=== PATIENT | male | born 1935 | race Caucasian/White ===

== ENCOUNTER → 2019-08-01 | Outpatient (CLI) | payer MEDICARE, OTHER ==
[2019-08-01 14:57] LABS: ALKALINE PHOSPHATASE 105 U/L (40-136); BILIRUBIN,TOTAL 0.7 MG/DL (0.1-1.0); BUN/CREATININE RATIO 29; CALCIUM 9.5 MG/DL (8.5-10.1); CARBON DIOXIDE 26 MMOL/L (21-32); CHLORIDE 105 MMOL/L (98-107); GFR ESTIMATED > 60; GLUCOSE 140 MG/DL (70-105); POTASSIUM 3.8 MMOL/L (3.6-5.0); SODIUM 142 MMOL/L (135-145)
[2019-08-01 14:58] LABS: ALANINE AMINOTRANSFERASE 14 U/L (0-55); ALBUMIN 3.9 GM/DL (3.2-4.5); TOTAL PROTEIN 6.5 GM/DL (6.4-8.2)
[2019-08-01 15:00] LABS: HEMOGLOBIN 12.5 G/DL (13.3-17.7); MEAN CORPUSCULAR HEMOGLOBIN 36 PG (25-34); WHITE BLOOD COUNT 6.3 10^3/uL (4.3-11.0)
[2019-08-01 15:03] LABS: BASOPHILS # (AUTO) 0.1 10^3/uL (0.0-0.1); BASOPHILS % (AUTO) 1 % (0-10); EOSINOPHILS # (AUTO) 0.1 10^3/uL (0.0-0.3); EOSINOPHILS % (AUTO) 2 % (0-10); HEMATOCRIT 37 % (40-54); LYMPHOCYTES # (AUTO) 2.1 X 10^3 (1.0-4.0); LYMPHOCYTES % (AUTO) 33 % (12-44); MEAN CORPUSCULAR HGB CONC 34 G/DL (32-36); MEAN CORPUSCULAR VOLUME 108 FL (80-99); MEAN PLATELET VOLUME 11.2 FL (7.4-10.4); MONOCYTES # (AUTO) 0.6 X 10^3 (0.0-1.0); MONOCYTES % (AUTO) 10 % (0-12); NEUTROPHILS # (AUTO) 3.4 X 10^3 (1.8-7.8); NEUTROPHILS % (AUTO) 54 % (42-75); PLATELET COUNT 145 10^3/uL (130-400); RED CELL DISTRIBUTION WIDTH 12.7 % (10.0-14.5)
[2019-08-01 22:23] LABS: CHOLESTEROL 146 MG/DL (< 200); HDL CHOLESTEROL 58 MG/DL (40-60); TRIGLYCERIDES 44 MG/DL (<150); VLDL CHOLESTEROL 9 MG/DL (5-40)
== END ==
LOC: LAB FS 13:53
PROVIDERS: ATTEND Internal Medicine Cardiovascular Disease
DX: I48.91 Unspecified atrial fibrillation (principal); I10 Essential (primary) hypertension; R00.2 Palpitations
CPT/HCPCS: 36415; 80053; 80061; 84443; 85025

== ENCOUNTER → 2019-08-03 | Outpatient (CLI) | payer MEDICARE, OTHER | LOC: CARD 13:47 | PROVIDERS: ATTEND Internal Medicine Cardiovascular Disease | DX: I48.91 Unspecified atrial fibrillation (principal); I10 Essential (primary) hypertension; R00.2 Palpitations; I08.3 Combined rheumatic disorders of mitral, aortic and tricuspid valves | CPT/HCPCS: 93306 ==

== ENCOUNTER 2019-08-05 14:58 | Emergency (ER) | payer MEDICARE, OTHER ==
[~2019-08-05] VITALS: Ht 177.8 cm; Wt 66.5 kg
--- NOTE | 2019-08-05 16:14 | ED Upper Extremity ---
General Chief Complaint: Upper Extremity Stated Complaint: LT ELBOW SWELLING Nursing Triage Note: Patient reports bruising and swelling to left elbow and lower arm since morning, denies any recent injury or pain to elbow. He states he recently started taking xarelto for atrial fibrillation (x 3 weeks ago). Nursing Sepsis Screen: No Definite Risk History of Present Illness Date Seen by Provider: Aug 05, 2019 Time Seen by Provider: 15:40 Initial Comments Patient is here swelling the left arm recently on Zarrella toe for atrial fibrillation and his elbow on the table felt something swelling in his olecranon bursa swelling was swollen followed by then bruising down the arm than that way for a couple days but was encouraged by his son to go when he went to urgent care they encouraged him to come this direction. No numbness or tingling good range of motion in the hand and wrist Onset: yesterday Pain/Injury Location: left elbow, left forearm Method of Injury: unknown Modifying Factors: Improves With Movement Allergies and Home Medications Allergies Coded Allergies: Penicillins (Verified Allergy, Unknown, 08/05/19) Patient Home Medication List Home Medication List Reviewed: Yes Review of Systems Constitutional: No chills, No fever Cardiovascular: No chest pain, No edema, No palpitations Musculoskeletal: joint pain, joint swelling, muscle pain, muscle stiffness Skin: change in color, lesions Psychiatric/Neurological: Denies Numbness, Denies Tingling, Denies Weakness Past Vkqtkkp-Uogwbm-Ilodql Hx Past Med/Social Hx: Reviewed Nursing Past Med/Soc Hx Patient Social History Recent Foreign Travel: No Contact w/Someone Who Travel: No Recent Infectious Disease Expo: No Physical Exam Vital Signs Vital Signs - First Documented 08/05/19 15:20 Temp 37.1 Pulse 74 Resp 18 B/P (MAP) 133/77 (95) Pulse Ox 96 O2 Delivery Room Air Capillary Refill : Less Than 3 Seconds Height, Weight, BMI Height: '" Weight: lbs. oz. kg; 21.00 BMI Method: General Appearance: WD/WN, no apparent distress HEENT: TMs normal, pharynx normal Neck: non-tender, normal inspection Cardiovascular: regular rate, rhythm, no murmur Respiratory: lungs clear, normal breath sounds Elbow/Forearm: Left, limited ROM, swelling Neurologic/Tendon: other (large amount of ecchymosis in the left arm with a swollen bursa on the left olecranon area good range of motion but does have some limitation on extremes of flexion neurologically intact pulses are intact vascularly looks good) Skin: ecchymosis Progress/Results/Core Measures Results/Orders Vital Signs/I&O 08/05/19 15:20 Temp 37.1 Pulse 74 Resp 18 B/P (MAP) 133/77 (95) Pulse Ox 96 O2 Delivery Room Air Blood Pressure Mean: 95 Departure Impression Primary Impression: Traumatic hematoma of left forearm Qualified Codes: S50.12XA - Contusion of left forearm, initial encounter Disposition: HOME, SELF-CARE Condition: Stable Departure-Patient Inst. Referrals: KALI GALLO MD (PCP/Family) Primary Care Physician Patient Instructions: HEMATOMA Add. Discharge Instructions: Follow-up with your PCP first part of next week All discharge instructions reviewed with patient and/or family. Voiced understanding. VIPIN CARDOZA JR, MD Aug 05, 2019 16:14
[2019-08-05 16:20] VITALS: BP 135/82
== END 2019-08-05 16:24 | disposition home or self-care (01) ==
LOC: EDUNIT# 14:58 → ER FS 15:00
DX: S50.12XA Contusion of left forearm, initial encounter (principal); I48.91 Unspecified atrial fibrillation; Z88.0 Allergy status to penicillin; X58.XXXA Exposure to other specified factors, initial encounter
CPT/HCPCS: 99282

== ENCOUNTER → 2019-08-15 | Outpatient (CLI) | payer MEDICARE, OTHER ==
--- NOTE | 2019-08-15 11:37 | Diagnostic Imaging Report ---
INDICATION: Age-related screening for osteoporosis. COMPARISON: None FINDINGS: AP Spine L1-L4: [BMD (g/cm2): 1.092] [T-Score: -1.2] [Z-Score: 0.0] [BMD Previous: na] [BMD % Change: na] LT Hip Neck: [BMD (g/cm2): na] [T-Score: na] [Z-Score: na] LT Hip Total: [BMD (g/cm2):na] [T-Score:na] [Z-Score: na] [BMD Previous: na] [BMD % Change: na] RT Hip Neck: [BMD (g/cm2):na] [T-Score:na] [Z-Score:na] RT Hip Total: [BMD (g/cm2):na] [T-score:na] [Z-Score:na] [BMD Previous:na] [BMD % Change:na] *Indicates significant change from prior examination based on 95% confidence level. World Health Organization criteria for BMD interpretation classify patients as Normal (T-score at or above -1.0), Osteopenic (T-score between -1.0 and -2.5) or Osteoporotic (T-score at or below -2.5). LIMITATIONS AND MODIFICATION: None. FRACTURE RISK (FRAX SCORE): The ten year probability of (%): Major Osteoporotic Fracture: [na] Hip Fracture: [na] IMPRESSION: 1. Osteopenia (Low bone mass). 2. Baseline examination. 3. See below National Osteoporosis Foundation guidelines on when to potentially initiate pharmacologic therapy. Based on the National Osteoporosis Foundation Guidelines, pharmacologic treatment should be initiated in any of the following, unless clinical conditions suggest otherwise: * Any patient with prior fragility fracture of the hip or vertebrae. A spine fracture indicates 5X risk for subsequent spine fracture and 2X risk for subsequent hip fracture. * Osteoporosis (T-score <-2.5). * Postmenopausal women and men age 50 and older with low bone mass/osteopenia (T-score between -1.0 and -2.5) by DXA and 10-year major osteoporotic fracture greater than 20% or a 10-year probability of hip fracture greater than 3%. These fracture risks are supplied above in the FRAX score, if applicable. * Clinician judgement and/or patient preferences may indicate treatment for people with 10-year fracture probabilities above or below these levels. Dictated by: Dictated on workstation # [id number]
== END ==
LOC: RAD 10:04
PROVIDERS: ATTEND Family Medicine
DX: M81.0 Age-related osteoporosis without current pathological fracture (principal)
CPT/HCPCS: 77080

== ENCOUNTER 2020-01-03 09:34 | Emergency (ER) | payer MEDICARE, OTHER ==
[~2020-01-03] VITALS: Ht 177.8 cm; Wt 66.6 kg
[2020-01-03 10:05] LABS: EOSINOPHILS % (AUTO) 3 % (0-10); HEMATOCRIT 38 % (40-54); HEMOGLOBIN 13.2 G/DL (13.3-17.7); LYMPHOCYTES % (AUTO) 29 % (12-44); MEAN CORPUSCULAR HEMOGLOBIN 36 PG (25-34); MEAN CORPUSCULAR HGB CONC 34 G/DL (32-36); MEAN CORPUSCULAR VOLUME 106 FL (80-99); MEAN PLATELET VOLUME 11.1 FL (7.4-10.4); MONOCYTES % (AUTO) 11 % (0-12); NEUTROPHILS % (AUTO) 56 % (42-75); PLATELET COUNT 169 10^3/uL (130-400); RED CELL DISTRIBUTION WIDTH 13.1 % (10.0-14.5); WHITE BLOOD COUNT 6.4 10^3/uL (4.3-11.0)
--- OUTSIDE RECORDS SUMMARY | 2020-01-03 10:05 | XMS REPORT | Continuity of Care Document ---
Author Organization Unknown Address Unknown Phone Unavailable Allergies Active Description Code Type Severity Reaction Onset Reported/Identified Relationship to Patient Clinical Status Yes Penicillins [id number] Drug Aller gy Unknown N/A 08/05/2019 Medications There is no data. Problems Date Dx Coded Attending Type Code Diagnosis Diagnosed By 08/02/2019 TOI ROME MD Ot I10 ESSENTIAL (PRIMARY) HYPERTENSION 08/02/2019 TOI ROME MD Ot I48. 91 UNSPECIFIED ATRIAL FIBRILLATION 08/02/2019 TOI ROME MD Ot R00. 2 PALPITATIONS 08/03/2019 TOI ROME MD Ot I10 ESSENTIAL (PRIMARY) HYPERTENSION 08/03/2019 TOI ROME MD Ot I48. 91 UNSPECIFIED ATRIAL FIBRILLATION 08/03/2019 TOI ROME MD Ot R00. 2 PALPITATIONS 08/03/2019 TOI ROME MD Ot I10 ESSENTIAL (PRIMARY) HYPERTENSION 08/03/2019 TOI ROME MD Ot I48. 91 UNSPECIFIED ATRIAL FIBRILLATION 08/03/2019 TOI ROME MD Ot R00. 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 91 UNSPECIFIED ATRIAL FIBRILLATION 08/04/2019 TOI ROME MD Ot R00. 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 91 UNSPECIFIED ATRIAL FIBRILLATION 08/05/2019 TOI ROME MD Ot R00. 2 PALPITATIONS 08/05/2019 TOI ROME MD Ot I10 ESSENTIAL (PRIMARY) HYPERTENSION 08/05/2019 TOI ROME MD Ot I48. 91 UNSPECIFIED ATRIAL FIBRILLATION 08/05/2019 TOI ROME MD Ot R00. 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 91 UNSPECIFIED ATRIAL FIBRILLATION 08/05/2019 TOI ROME MD Ot R00. 2 PALPITATIONS 08/05/2019 TOI ROME MD Ot I10 ESSENTIAL (PRIMARY) HYPERTENSION 08/05/2019 TOI ROME MD Ot I48. 91 UNSPECIFIED ATRIAL FIBRILLATION 08/05/2019 TOI ROME MD Ot R00. 2 PALPITATIONS 08/05/2019 VIPIN CARDOZA MD Ot I48.91 UNSPECIFIED ATRIAL FIBRILLATION 08/05/2019 SONY JOSE, VIPIN Malloy Ot M25.522 PAIN IN LEFT ELBOW 08/05/2019 SONY JOSE, VIPIN Mlaloy Ot S50.12XA CONTUSION OF LEFT FOREARM, INITIAL ENCOU 08/05/2019 SONY JOSE, VIPIN Malloy Ot X58.XXXA EXPOSURE TO OTHER SPECIFIED FACTORS, INI 08/05/2019 SONY JOSE, VIPIN Malloy Ot Z88.0 ALLERGY STATUS TO PENICILLIN 08/05/2019 TOI ROME MD Ot I08. 3 COMB RHEUMATIC DISORD OF MITRAL, AORTIC 08/05/2019 TOI ROME MD Ot I10 ESSENTIAL (PRIMARY) HYPERTENSION 08/05/2019 TOI ROME MD Ot I48. 91 UNSPECIFIED ATRIAL FIBRILLATION 08/05/2019 TOI ROME MD Ot R00. 2 PALPITATIONS 08/05/2019 TOI ROME MD Ot I10 ESSENTIAL (PRIMARY) HYPERTENSION 08/05/2019 TOI ROME MD Ot I48. 91 UNSPECIFIED ATRIAL FIBRILLATION 08/05/2019 TOI ROME MD Ot R00. 2 PALPITATIONS 08/07/2019 TOI ROME MD Ot I10 ESSENTIAL (PRIMARY) HYPERTENSION 08/07/2019 TOI ROME MD Ot I48. 91 UNSPECIFIED ATRIAL FIBRILLATION 08/07/2019 TOI ROME MD Ot R00. 2 PALPITATIONS 08/08/2019 TOI ROME MD Ot I08. 3 COMB RHEUMATIC DISORD OF MITRAL, AORTIC 08/08/2019 TOI ROME MD Ot I10 ESSENTIAL (PRIMARY) HYPERTENSION 08/08/2019 TOI ROME MD Ot I48. 91 UNSPECIFIED ATRIAL FIBRILLATION 08/08/2019 TOI ROME MD Ot R00. 2 PALPITATIONS 08/08/2019 TOI ROME MD Ot I10 ESSENTIAL (PRIMARY) HYPERTENSION 08/08/2019 TOI ROME MD Ot I48. 91 UNSPECIFIED ATRIAL FIBRILLATION 08/08/2019 TOI ROME MD Ot R00. 2 PALPITATIONS 08/09/2019 TOI ROME MD Ot I08. 3 COMB RHEUMATIC DISORD OF MITRAL, AORTIC 08/09/2019 TOI ROME MD Ot I10 ESSENTIAL (PRIMARY) HYPERTENSION 08/09/2019 TOI ROME MD Ot I48. 91 UNSPECIFIED ATRIAL FIBRILLATION 08/09/2019 TOI ROME MD Ot R00. 2 PALPITATIONS 08/09/2019 VIPIN CARDOZA MD Ot I48.91 UNSPECIFIED ATRIAL FIBRILLATION 08/09/2019 VIPIN CARDOZA MD Ot M25.522 PAIN IN LEFT ELBOW 08/09/2019 VIPIN CARDOZA MD Ot S50.12XA CONTUSION OF LEFT FOREARM, INITIAL ENCOU 08/09/2019 VIPIN CARDOZA MD Ot X58.XXXA EXPOSURE TO OTHER SPECIFIED FACTORS, INI 08/09/2019 VIPIN CARDOZA MD Ot Z88.0 ALLERGY STATUS TO PENICILLIN 08/09/2019 SABINO JOSE, KALI Ot M81.0 AGE-RELATED OSTEOPOROSIS W/O CURRENT PAT 08/11/2019 VIPIN CARDOZA MD Ot I48.91 UNSPECIFIED ATRIAL FIBRILLATION 08/11/2019 VIPIN CARDOZA MD Ot M25.522 PAIN IN LEFT ELBOW 08/11/2019 VIPIN CARDOZA MD Ot S50.12XA CONTUSION OF LEFT FOREARM, INITIAL ENCOU 08/11/2019 VIPIN CARDOZA MD Ot X58.XXXA EXPOSURE TO OTHER SPECIFIED FACTORS, INI 08/11/2019 VIPIN CARDOZA MD Ot Z88.0 ALLERGY STATUS TO PENICILLIN 08/14/2019 TOI ROME MD Ot I08. 3 COMB RHEUMATIC DISORD OF MITRAL, AORTIC 08/14/2019 TOI ROME MD Ot I10 ESSENTIAL (PRIMARY) HYPERTENSION 08/14/2019 LATRICIA JOSE, TOI Cortes Ot I48. 91 UNSPECIFIED ATRIAL FIBRILLATION 08/14/2019 TOI ROME MD Ot R00. 2 PALPITATIONS 08/14/2019 LATRICIA JOSE, TOI J Ot I10 ESSENTIAL (PRIMARY) HYPERTENSION 08/14/2019 LATRICIA JOSE, TOI Cortes Ot I48. 91 UNSPECIFIED ATRIAL FIBRILLATION 08/14/2019 TOI ORME MD Ot R00. 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 91 UNSPECIFIED ATRIAL FIBRILLATION 08/15/2019 TOI ROME MD Ot R00. 2 PALPITATIONS 08/15/2019 TOI ROME MD Ot I10 ESSENTIAL (PRIMARY) HYPERTENSION 08/15/2019 TOI ROME MD Ot I48. 91 UNSPECIFIED ATRIAL FIBRILLATION 08/15/2019 TOI ROME MD Ot R00. 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 91 UNSPECIFIED ATRIAL FIBRILLATION 08/15/2019 TOI ROME MD Ot R00. 2 PALPITATIONS 08/15/2019 TOI ROME MD J Ot I10 ESSENTIAL (PRIMARY) HYPERTENSION 08/15/2019 TOI ROME MD Ot I48. 91 UNSPECIFIED ATRIAL FIBRILLATION 08/15/2019 TOI ROME MD Ot R00. 2 PALPITATIONS 08/15/2019 SABINO JOSE KALI Ot M81.0 AGE-RELATED OSTEOPOROSIS W/O CURRENT PAT 08/16/2019 KALI GALLO MD, Ot M81.0 AGE-RELATED OSTEOPOROSIS W/O CURRENT PAT 08/22/2019 TOI ROME MD, Ot I10 ESSENTIAL (PRIMARY) HYPERTENSION 08/22/2019 TOI ROME MD, Ot I48. 91 UNSPECIFIED ATRIAL FIBRILLATION 08/22/2019 TOI ROME MD, Ot R00. 2 PALPITATIONS 09/06/2019 KALI GALLO MD, Ot M81.0 AGE-RELATED OSTEOPOROSIS W/O CURRENT PAT Procedures There is no data. Results Test Result Range CMP - 07/18/19 11:39 GLUCOSE 85 mg/dL 65-99 UREA NITROGEN (BUN) 21 mg/dL 7-25 CREATININE 0.85 mg/dL 0.70-1.11 eGFR NON-AFR. SURINAMESE 79 mL/min/1.73m2 > OR = 60 eGFR 92 mL/min/1.73m2 > OR = 60 BUN/CREATININE RATIO NOT APPLICABLE (calc) 6-22 SODIUM 143 mmol/L 135-146 POTASSIUM 3.9 mmol/L 3.5-5.3 CHLORIDE 106 mmol/L 98-110 CARBON DIOXIDE 30 mmol/L 20-32 CALCIUM 9.4 mg/dL 8.6-10.3 PROTEIN, TOTAL 6.4 g/dL 6.1-8.1 ALBUMIN 4.0 g/dL 3.6-5.1 GLOBULIN 2.4 g/dL (calc) 1.9-3.7 ALBUMIN/GLOBULIN RATIO 1.7 (calc) 1.0-2. 5 BILIRUBIN, TOTAL 0.8 mg/dL 0.2-1.2 ALKALINE PHOSPHATASE 107 U/L 40-115 AST 22 U/L 10-35 ALT 14 U/L 9-46 CBC - 07/18/19 11:39 WHITE BLOOD CELL COUNT 5.2 Thousand/uL 3 .8-10.8 RED BLOOD CELL COUNT 3.53 Million/uL 4.2 0-5.80 HEMOGLOBIN 13.2 g/dL 13.2-17.1 HEMATOCRIT 37.3 % 38.5-50.0 MCV 105.7 fL 80.0-100.0 MCH 37.4 pg 27.0-33.0 MCHC 35.4 g/dL 32.0-36.0 RDW 12.1 % 11.0-15.0 PLATELET COUNT 155 Thousand/uL 140-400 MPV 12.1 fL 7.5-12.5 ABSOLUTE NEUTROPHILS 2579 cells/uL 1500- 7800 ABSOLUTE LYMPHOCYTES 1763 cells/uL 850-3 900 ABSOLUTE MONOCYTES 629 cells/uL 200-950 ABSOLUTE EOSINOPHILS 161 cells/uL 15-500 ABSOLUTE BASOPHILS 68 cells/uL 0-200 NEUTROPHILS 49.6 % NRG LYMPHOCYTES 33.9 % NRG MONOCYTES 12.1 % NRG EOSINOPHILS 3.1 % NRG BASOPHILS 1.3 % NRG PT/INR - 07/18/19 11:39 INR 1.1 NRG PT 11.4 sec 9.0-11.5 PTT - 07/18/19 11:39 PARTIAL THROMBOPLASTIN TIME, ACTIVATED 30 sec 22-34 Encounters ACCT No. Visit Date/Time Discharge Status Pt. Type Provider Facility Loc./Unit Complaint [id number] 01/01/2020 10:45:00 ACT [facility] [id number] 07/18/2019 11:00:00 Document Registration [id number] 08/15/2019 10:04:00 23:59:59 CLS Outpatient KALI GALLO MD [facility] RAD AGE RELATED OSTEOPOROSI S M81.0 [id number] 08/05/2019 15:00:00 16:24:00 DIS Emergency VIPIN CARDOZA MD [facility] ER FS LT ELBOW SWELLING [id number] 08/03/2019 13:47:00 23:59:59 CLS Outpatient TOI ROME MD [facility] CARD AF,HTN,PALPITATION [id number] 08/01/2019 13:53:00 23:59:59 CLS Outpatient TOI ROME MD [facility] LAB FS I48.91 I110 R00.2 [id number] 07/14/2019 14:47:00 14:47:00 CAN Preadmit ROVENSTINE EFREN MCLAUGHLIN [facility] ER FS [id number]
[2020-01-03 10:06] LABS: BASOPHILS # (AUTO) 0.1 10^3/uL (0.0-0.1); BASOPHILS % (AUTO) 1 % (0-10); EOSINOPHILS # (AUTO) 0.2 10^3/uL (0.0-0.3); LYMPHOCYTES # (AUTO) 1.8 X 10^3 (1.0-4.0); MONOCYTES # (AUTO) 0.7 X 10^3 (0.0-1.0); NEUTROPHILS # (AUTO) 3.6 X 10^3 (1.8-7.8)
[2020-01-03 10:16] LABS: INR 1.9 (0.8-1.4); PROTHROMBIN TIME PATIENT 22.1 SEC (12.2-14.7)
--- NOTE | 2020-01-03 10:20 | ED Abdominal Pain ---
General Chief Complaint: Abdominal/GI Problems Stated Complaint: ABD PAIN History of Present Illness Date Seen by Provider: Jan 03, 2020 Time Seen by Provider: 10:14 Initial Comments 84-year-old male presents with a persisting right abdominal pain going on for at least several days he may have had a fall or minor trauma some time in the last 2-3 weeks in terms the abdominal pain - he continues to eat normally he has had no nausea vomiting diarrhea is having normal bowel movements he's not noticed anything different about the urine he does have nocturia 3 or 4 times each night, denies any difficulty emptying his bladder he is in atrial fib and takes blood thinner apparently has pretty easy bruising he hit his left elbow months ago and also scraped his right lower leg both still have remnants of mild ecchymosis and swelling he's unaware of any trauma to his right abdomen or his back except the questionable possible fall weeks ago does have osteporosis he seems to localize this more to the right lower quadrant of the abdomen it is definitely exacerbated by sitting up for example or position changes etc. i in fact the pain goes away completely if he is lying or sitting and doesn't move he saw his primary doctor just yesterday who felt the pain was coming from abdominal wall musculature which certainly fits his presentation Allergies and Home Medications Allergies Coded Allergies: Penicillins (Verified Allergy, Unknown, 08/05/19) Home Medications Ascorbic Acid 500 Mg Capsule, 500 MG PO DAILY, (Reported) Cyanocobalamin (Vitamin B-12) 1,000 Mcg Tablet, 1,000 MCG PO DAILY, (Reported) Famotidine 20 Mg Tablet, 20 MG PO HS, (Reported) Folic Acid 0.4 Mg Tablet, 0.4 MG PO DAILY, (Reported) Hyoscyamine Sulfate 0.125 Mg Tab.subl, 0.125 MG PO PRN, (Reported) Zinc Amino Acid Chelate 50 Mg Tablet, 50 MG PO DAILY, (Reported) Patient Home Medication List Home Medication List Reviewed: Yes Review of Systems Review of Systems Constitutional: no symptoms reported EENTM: No Symptoms Reported Respiratory: No Symptoms Reported Cardiovascular: No Symptoms Reported Gastrointestinal: Abdominal Pain; Denies Constipated, Denies Diarrhea, Denies Vomiting Genitourinary: Denies Burning, Denies Pain, Denies Urgency Musculoskeletal: back pain, other (pain seems mostly right abdominal but there may be some right CVA pain as well) Skin: no symptoms reported Psychiatric/Neurological: No Symptoms Reported Endocrine: No Symptoms Reported Hematologic/Lymphatic: Easy Bruising Past Mmftpev-Bylpeh-Jbwbpz Hx Patient Social History Type Used: Cigarettes Former Smoker, Quit: Apr 28, 1961 2nd Hand Smoke Exposure: No Recent Foreign Travel: No Contact w/Someone Who Travel: No Recent Hopitalizations: No Seasonal Allergies Seasonal Allergies: No Past Medical History Surgeries: Yes Joint Replacement, Orthopedic Respiratory: No Cardiac: Yes Atrial Fibrillation, Hypertension Neurological: No Genitourinary: No Gastrointestinal: No Musculoskeletal: No Endocrine: No HEENT: No Cancer: No Psychosocial: No Integumentary: No Physical Exam Vital Signs Vital Signs - First Documented 01/03/20 09:39 Temp 36.5 Pulse 73 Resp 18 B/P (MAP) 148/74 (98) Pulse Ox 97 O2 Delivery Room Air Capillary Refill : Height/Weight/BMI Height: '" Weight: lbs. oz. kg; 21.00 BMI Method: General Appearance: WD/WN, no apparent distress HEENT: PERRL/EOMI, pharynx normal Neck: non-tender, supple Respiratory: lungs clear Cardiovascular: irregularly irregular Gastrointestinal: normal bowel sounds, non tender, soft; No guarding, No rebound Genital/Rectal: normal genital exam Back: normal inspection, no vertebral tenderness Progress/Results/Core Measures Results/Orders Lab Results Laboratory Tests Test 01/03/20 09:45 01/03/20 11:40 Range/Units White Blood Count 6.4 4.3-11.0 10^3/uL Red Blood Count 3.63 L 4.35-5.85 10^6/uL Hemoglobin 13.2 L 13.3-17.7 G/DL Hematocrit 38 L 40-54 % Mean Corpuscular Volume 106 H 80-99 FL Mean Corpuscular Hemoglobin 36 H 25-34 PG Mean Corpuscular Hemoglobin Concent 34 32-36 G/DL Red Cell Distribution Width 13.1 10.0-14.5 % Platelet Count 169 130-400 10^3/uL Mean Platelet Volume 11.1 H 7.4-10.4 FL Neutrophils (%) (Auto) 56 42-75 % Lymphocytes (%) (Auto) 29 12-44 % Monocytes (%) (Auto) 11 0-12 % Eosinophils (%) (Auto) 3 0-10 % Basophils (%) (Auto) 1 0-10 % Neutrophils # (Auto) 3.6 1.8-7.8 X 10^3 Lymphocytes # (Auto) 1.8 1.0-4.0 X 10^3 Monocytes # (Auto) 0.7 0.0-1.0 X 10^3 Eosinophils # (Auto) 0.2 0.0-0.3 10^3/uL Basophils # (Auto) 0.1 0.0-0.1 10^3/uL Prothrombin Time 22.1 H 12.2-14.7 SEC INR Comment 1.9 H 0.8-1.4 Sodium Level 145 135-145 MMOL/L Potassium Level 4.3 3.6-5.0 MMOL/L Chloride Level 108 H 98-107 MMOL/L Carbon Dioxide Level 27 21-32 MMOL/L Anion Gap 10 5-14 MMOL/L Blood Urea Nitrogen 26 H 7-18 MG/DL Creatinine 0.91 0.60-1.30 MG/DL Estimat Glomerular Filtration Rate > 60 BUN/Creatinine Ratio 29 Glucose Level 120 H 70-105 MG/DL Calcium Level 9.5 8.5-10.1 MG/DL Corrected Calcium 9.6 8.5-10.1 MG/DL Total Bilirubin 0.8 0.1-1.0 MG/DL Aspartate Amino Transf (AST/SGOT) 24 5-34 U/L Alanine Aminotransferase (ALT/SGPT) 13 0-55 U/L Alkaline Phosphatase 100 40-136 U/L Total Protein 6.9 6.4-8.2 GM/DL Albumin 3.9 3.2-4.5 GM/DL Urine Color PALE YELLOW Urine Clarity CLEAR Urine pH 8.0 5-9 Urine Specific Jolo 1.010 L 1.016-1.022 Urine Protein NEGATIVE NEGATIVE Urine Glucose (UA) NEGATIVE NEGATIVE Urine Ketones NEGATIVE NEGATIVE Urine Nitrite NEGATIVE NEGATIVE Urine Bilirubin NEGATIVE NEGATIVE Urine Urobilinogen 0.2 < = 1.0 MG/DL Urine Leukocyte Esterase NEGATIVE NEGATIVE Urine RBC (Auto) NEGATIVE NEGATIVE Urine RBC RARE /HPF Urine WBC NONE /HPF Urine Squamous Epithelial Cells NONE /HPF Urine Crystals NONE /LPF Urine Bacteria NEGATIVE /HPF Urine Casts NONE /LPF Urine Mucus NEGATIVE /LPF Urine Culture Indicated NO My Orders Orders - SAMAN MENJIVAR MD Iv Heplock-Insert (Order) (01/03/20 09:55) Cbc With Automated Diff (01/03/20 09:55) Comprehensive Metabolic Panel (01/03/20 09:55) Urinalysis (01/03/20 09:55) Protime With Inr (01/03/20 09:55) Lumbar Spine 2 Or 3 View (01/03/20 10:13) Ct Abd/Pelv W (Appendicitis) (01/03/20 10:43) Iohexol Injection (Omnipaque 350 Mg/Ml 1 (01/03/20 11:00) Received Contrast (Hold Metformin- Contr (01/03/20 11:00) Sodium Chloride Flush (Catheter Flush Sy (01/03/20 11:00) Ns (Ivpb) (Sodium Chloride 0.9% Ivpb Bag (01/03/20 11:00) Medications Given in ED Current Medications Medications Dose Ordered Sig/Pedro Pablo Route Start Time Stop Time Status Last Admin Dose Admin Iohexol 100 ml ONCE ONCE IV 01/03/20 11:00 01/03/20 11:01 DC 01/03/20 11:18 100 ML Sodium Chloride 10 ml NEEDED PRN IV 01/03/20 11:00 01/03/20 11:18 10 ML Sodium Chloride 100 ml ONCE ONCE IV 01/03/20 11:00 01/03/20 11:01 DC 01/03/20 11:18 100 ML Vital Signs/I&O 01/03/20 09:39 Temp 36.5 Pulse 73 Resp 18 B/P (MAP) 148/74 (98) Pulse Ox 97 O2 Delivery Room Air Progress Progress Note : Progress Note L spine - no comp fx appreciated CBC - Hb 13.2 WBC 6,400 CMP - unremarkable creat 0.9 INR/PT - 1.9 UA - neg CT abd/pel - normal appendix bilateral renal cysts no ureteral dilatation hypoenhancing lobulated appearance the proximal body of the pancreas 1.8 cm short interval reexamination at 3 months recommended cholelithiasis but no gallbladder wall thickening bladder wall appears thickened In light of all the above findings feel the pain probably is from abdominal wall musculature but no hematoma or other abnormality was identified to confirm Departure Impression Primary Impression: Abdominal wall pain Disposition: 01 HOME, SELF-CARE Condition: Unchanged Departure-Patient Inst. Decision time for Depature: 12:14 Referrals: SELF,KALI JOSE (PCP/Family) Primary Care Physician Patient Instructions: Acute Abdomen (Belly Pain), Adult (DC) Scripts Hydrocodone/Acetaminophen (Hydrocodone-Acetamin 5-325 mg) 1 Each Tablet 1 EACH PO TID PRN for PAIN-MODERATE (5-7), #12 TAB Prov: SAMAN MENJIVAR MD 01/03/20 SAMAN MENJIVAR MD Jan 03, 2020 10:20
[2020-01-03 10:29] LABS: POTASSIUM 4.3 MMOL/L (3.6-5.0); SODIUM 145 MMOL/L (135-145)
[2020-01-03 10:30] LABS: ALANINE AMINOTRANSFERASE 13 U/L (0-55); ALKALINE PHOSPHATASE 100 U/L (40-136); BILIRUBIN,TOTAL 0.8 MG/DL (0.1-1.0); BUN/CREATININE RATIO 29; CALCIUM 9.5 MG/DL (8.5-10.1); CARBON DIOXIDE 27 MMOL/L (21-32); CHLORIDE 108 MMOL/L (98-107); CREATININE SERUM 0.91 MG/DL (0.60-1.30); GFR ESTIMATED > 60; GLUCOSE 120 MG/DL (70-105)
--- NOTE | 2020-01-03 10:30 | NUR ---
Pt's son Jerome called for update. Permission from pt for release of info. Son gives report of pt's decreased mobility as becoming more sedentary lifestyle. Pt is no longer consuming alcoholic beverages as his Dr instructed on the interaction with meds, but this used to work like a diuretic for him. Pt eats lots of ice cream and using excessive TUMS and son concerned for kidney stones. Reports the Ortho [address] advised he may be risk of compression fractures. Pt has an osteoporosis dx. The son states the patient is annoyed with any frequency to bathroom so merely doesn't drink hardly any fluids. All concerns verbalized to Dr Casiano.
[2020-01-03 10:31] LABS: ALBUMIN 3.9 GM/DL (3.2-4.5); TOTAL PROTEIN 6.9 GM/DL (6.4-8.2)
[2020-01-03] MEDS ORDERED: METO-351 (10:33)
[2020-01-03] MEDS ORDERED: RIVA20TA (10:33)
[2020-01-03] MEDS ORDERED: CELE-63 (10:33)
[2020-01-03] MEDS ORDERED: DILT-27 (10:33)
[2020-01-03] MEDS ORDERED: MTP25TSR (10:33)
[2020-01-03] MEDS ORDERED: HYOS-19 PO (10:33)
[2020-01-03] MEDS ORDERED: ASCO500C17 PO (10:39)
[2020-01-03] MEDS ORDERED: FOLI0.4T2 PO (10:39)
[2020-01-03] MEDS ORDERED: ZINC50TA51 PO (10:39)
[2020-01-03] MEDS ORDERED: FAMO-119 PO (10:39)
[2020-01-03] MEDS ORDERED: CYAN100088 PO (10:39)
--- NOTE | 2020-01-03 10:43 | Diagnostic Imaging Report ---
CLINICAL INDICATION: Patient with lower abdominal pain and low back pain. No known injury. EXAM: X-ray of the lumbar spine, three views. COMPARISON: None. FINDINGS: There is left curvature of the thoracolumbar spine. There is osteopenia noted. There is no acute lumbar spine fracture or dislocation. There are hypertrophic spurs seen throughout the lumbar spine and facet arthropathy. There is moderate loss of disc space height involving the L5-S1 level. There is mild loss of disc space height at the T12-L1, L1-L2, and L2-L3 levels. Sacroiliac joints show no significant abnormality. 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 IMPRESSION: There is lumbar spine degenerative disease with no acute fracture or dislocation. Dictated by: Dictated on workstation # [id number]
--- NOTE | 2020-01-03 10:57 | NUR ---
To CT per cart, pt has not been able to void.
[2020-01-03] MEDS ORDERED: HOLD METFORMIN - RECEIVED CONTRAST 20 ML VIAL IV SCH (11:00)
[2020-01-03] MEDS ORDERED: CATHETER FLUSH 10 ML SYR IV PRN (11:00)
[2020-01-03] MEDS ORDERED: IOHEXOL 350 MG/ML 100 ML (OMNIPAQUE 350) VIAL IV ONE (11:00)
[2020-01-03] MEDS ORDERED: NS 100 ML (IVPB) BAG IV ONE (11:00)
--- NOTE | 2020-01-03 11:21 | NUR ---
Returned to room from CT.
--- NOTE | 2020-01-03 11:40 | NUR ---
Update given to saurav Cano. Pt is just now currently giving a urine sample as he had voided while in CT dept. The radiologist is reading pt's CT scan now. Expect approx add'l hour for results and disposition plan.
--- NOTE | 2020-01-03 11:45 | NUR ---
Call to patient's son Jerome to review discharge findings and plan. Pt's son then asks numerous questions and pursues isses with all the recommended follow up that is recommended to occur under Dr Self's management as not critical emergency findings and just need followed. Copies of tests included per Dr's wishes with discharge instructions.
--- NOTE | 2020-01-03 11:46 | Diagnostic Imaging Report ---
PROCEDURE: CT abdomen and pelvis with contrast, rule out appendicitis. TECHNIQUE: Multiple contiguous axial images were obtained through the abdomen and pelvis after the administration of intravenous contrast. All CT scans use one or more of the following dose optimizing techniques: automated exposure control, MA and/or KvP adjustment based on a patient size and exam type, or iterative reconstruction. INDICATION: Lower abdominal pain. COMPARISON: None. FINDINGS: The included portions of the lung bases show mild dependent atelectasis. A 6 mm micronodule is noted within the lingula of the left upper lobe. There is also mild cardiomegaly. CT ABDOMEN: A normal appendix is identified (image 60, series 2). The small bowel loops are nondistended. Multiple cystic foci are noted involving the bilateral renal collecting systems. These are presumed to represent prominent peripelvic cysts, left greater than right. Some underlying caliectasis/hydronephrosis is not excluded but felt to be less likely. A nonobstructive right renal calculus is present. The ureters cannot be followed in their entirety but the visualized portions of the ureters are decompressed. An additional benign exophytic superior pole left renal cyst is also noted. Otherwise, no enhancing renal masses are identified. The adrenal glands, spleen, and liver have a normal CT appearance. There is a hypoenhancing lobulated appearance to the proximal body of the pancreas. The area in question measures 1.8 cm in diameter. The pancreas is otherwise unremarkable. There is cholelithiasis but no gallbladder wall thickening or pericholecystic free fluid. There is no loculated fluid collection, free fluid, or free air within the abdomen. No abnormal mesenteric or retroperitoneal adenopathy is seen. There is moderate diffuse calcified aortic and arterial atherosclerosis. The osseous structures show no acute abnormalities. CT PELVIS: The pelvis is heavily obscured secondary to beam hardening artifact from the bilateral hip prostheses. The urinary bladder wall does appear thickened although the urinary bladder is only minimally distended. There is no loculated fluid collection, free fluid, or free air within the pelvis. No abnormal adenopathy is seen. The osseous structures show no acute abnormalities. IMPRESSION: 1. Normal appendix. 2. Probable bilateral renal pelvic cysts. This could be confirmed by obtaining a delayed post contrast CT of the abdomen. Alternatively, if there is concern for obstruction, a renal Lasix scan may be of benefit. 3. Nonobstructive right renal calculus. 4. Cholelithiasis but no CT evidence of acute cholecystitis. 5. Hypoenhancing lobulated appearance of the proximal body of the pancreas. These areas are cystic in appearance and may be on the basis of prominent side radicals or pancreatic cysts. Cystic neoplasm or other pancreatic malignancy is not entirely excluded. A short interval 3 month post contrast followup is recommended. 6. Thickened appearance of the urinary bladder wall. This is greater than expected considering minimal distention of the urinary bladder. This appearance can be seen with cystitis as well as related to detrusor hypertrophy from chronic bladder obstruction. Clinical correlation is recommended. Dictated by: Dictated on workstation # [id number]
[2020-01-03 12:01] LABS: BILIRUBIN,URINE NEGATIVE (NEGATIVE); CLARITY,URINE CLEAR; COLOR,URINE PALE YELLOW; GLUCOSE, URINE (UA) NEGATIVE (NEGATIVE); KETONES,URINE NEGATIVE (NEGATIVE); LEUKOCYTE ESTERASE ,URINE NEGATIVE (NEGATIVE); NITRITE,URINE NEGATIVE (NEGATIVE); PROTEIN,URINE NEGATIVE (NEGATIVE); RBC,URINE RARE /HPF
[2020-01-03 12:02] LABS: BACTERIA,URINE NEGATIVE /HPF
[2020-01-03] MEDS ORDERED: HYDR-83 PO (12:18)
[2020-01-03 12:45] VITALS: BP 121/75
== END 2020-01-03 12:45 | disposition home or self-care (01) ==
LOC: EDUNIT# 09:34 → ER FS 09:36
DX: R10.31 Right lower quadrant pain (principal); I10 Essential (primary) hypertension; I48.91 Unspecified atrial fibrillation; Z88.0 Allergy status to penicillin; Z87.891 Personal history of nicotine dependence
CPT/HCPCS: 36415; 72100; 74177; 80053; 81000; 85025; 85610

== ENCOUNTER → 2020-03-11 | Outpatient (CLI) | payer MEDICARE, OTHER ==
[~2020-03-11] MED LIST: ACHD5005 PO; ASCO500C17 PO; CELE-63 PO; CYAN100088 PO; DILT-27 PO; FAMO-119 PO; FOLI0.4T2 PO; HYOS-19 PO; METO-351 PO; MTP25TSR; RIVA20TA PO; ZINC50TA51 PO
== END ==
LOC: LABNPT 06:05
PROVIDERS: ATTEND Internal Medicine Cardiovascular Disease
DX: Z01.812 Encounter for preprocedural laboratory examination (principal); Z53.8 Procedure and treatment not carried out for other reasons

== ENCOUNTER 2020-03-13 10:30 | Day surgery (SDC) | payer MEDICARE, OTHER ==
[~2020-03-13] VITALS: Ht 177 cm; Wt 67.0 kg
[2020-03-13 08:47] LABS: HEMOGLOBIN 13.1 G/DL (13.3-17.7)
[2020-03-13 08:58] VITALS: BP 140/91
--- NOTE | 2020-03-13 08:58 | Diagnostic Imaging Report ---
INDICATION: Pre-heart catheterization. Patient has atrial fibrillation. Time of exam 8:46 AM No prior studies are available for comparison. The heart size is normal. The pulmonary vascularity is unremarkable. The lungs are clear. No infiltrate, effusion or pneumothorax is detected. Impression: No acute cardiopulmonary process is detected. Dictated by: Dictated on workstation # [id number]
[2020-03-13 09:05] LABS: INR 1.5 (0.8-1.4); PROTHROMBIN TIME PATIENT 18.5 SEC (12.2-14.7)
[2020-03-13 09:08] LABS: ALANINE AMINOTRANSFERASE 15 U/L (0-55); ALBUMIN 3.7 GM/DL (3.2-4.5); ALKALINE PHOSPHATASE 82 U/L (40-136); BILIRUBIN,TOTAL 1.3 MG/DL (0.1-1.0); BUN/CREATININE RATIO 24; CALCIUM 8.9 MG/DL (8.5-10.1); CARBON DIOXIDE 25 MMOL/L (21-32); CHLORIDE 107 MMOL/L (98-107); CHOLESTEROL 145 MG/DL (< 200); CREATININE SERUM 0.93 MG/DL (0.60-1.30); GFR ESTIMATED > 60; GLUCOSE 115 MG/DL (70-105); HDL CHOLESTEROL 52 MG/DL (40-60); POTASSIUM 3.8 MMOL/L (3.6-5.0); SODIUM 141 MMOL/L (135-145); TOTAL PROTEIN 6.7 GM/DL (6.4-8.2); TRIGLYCERIDES 59 MG/DL (<150); VLDL CHOLESTEROL 12 MG/DL (5-40)
--- NOTE | 2020-03-13 09:24 | NUR ---
I SPOKE WITH THE PATIENT, WENT THROUGH THE EXTERNAL MED HISTORY AND WENT THROUGH THE MEDICATIONS PATIENT BROUGHT FROM HOME TO COMPLETE THIS MED REC. CELEBREX 200MG LAST FILLED 01/21/2020 #90 90DS -PATIENT HAD A MORE CURRENT FILL DATE ON THE BOTTLE THAT HE BROUGHT, THAN THE DATE ON THE EXTERNAL MED HISTORY OTC: VITAMIN C ZINC B-12 FOLIC ACID PEPCID
[~2020-03-13 10:30] MED LIST changes: +ENOXAPARIN 80 MG/0.8 ML (LOVENOX) SYR SC ONE; +LIDOCAINE 2% VISCOUS 15 ML UDC ONE; +LIDOCAINE 2% VISCOUS 15 ML UDC PO ONE; +MIDAZOLAM 2 MG/2 ML (VERSED) VIAL ONE; +NS IV 1000 ML 1,000 ML IV SCH; +NS IV 1000 ML 1,000 ML ONE; +proPOfol 200 MG/20 ML (DIPRIVAN) VIAL IV ONE
--- NOTE | 2020-03-13 10:35 | Cardiac Procedure Note-CS/ASA ---
Pre-Procedure Note Pre-Op Procedure Note H&P Reviewed The H&P was reviewed, patient examined and no changes noted. Date H&P Reviewed: Mar 13, 2020 Time H&P Reviewed: 10:35 Conscious Sedation Pre-Proced Time 10:35 ASA Score 3 For ASA 3 and 4: Consider anesthesia and medical clearance. Also, for patients with a history of failed moderate sedation consider anesthesia. Airway Lungs Heart ASA score ASA 1: a normal healthy patient ASA 2: a patient with a mild systemic disease (mid diabetes, controlled hypertension, obesity x ASA 3: a patient with a severe systemic disease that limits activity (angina, COPD, prior Myocardial infarction) ASA 4: a patient with an incapacitating disease that is a constant threat to life (CHF, renal failure) ASA 5: a moribund patient not expected to survive 24 hrs. (ruptured aneurysm) ASA 6: a declared brain- patient whose organs are being harvested. For emergent operations, add the letter E after the classification Mallampati Classification Grade 3 Sedation Plan Analgesia, Amnesia, Plan communicated to team members, Discussed options with patient/fam, Discussed risks with patient/fam The patient is an appropriate candidate to undergo the planned procedure, sedation, and anesthesia. The patient immediately re-assessed prior to indication. TOI ROME MD Mar 13, 2020 10:35
[2020-03-13 10:55] VITALS: BP 108/81
[2020-03-13 11:00] VITALS: BP 151/109
[2020-03-13 11:05] VITALS: BP 124/85
[2020-03-13 11:10] VITALS: BP 121/91
[2020-03-13 11:30] VITALS: BP 135/84
--- NOTE | 2020-03-13 11:36 | Clinic Account Progress/Dx ---
Clinic Account Progress/Dx DIAGNOSIS: Date Seen by Provider: Mar 13, 2020 Time Seen by Provider: 11:36 Atrial fibrillation Hypertension Hyperlipidemia Palpitation TOI ROME MD Mar 13, 2020 11:36
--- NOTE | 2020-03-13 11:38 | Diagnostic Imaging Report ---
INDICATION: Post EBONY, difficulty passing the probe. FINDINGS: There is no pneumothorax. There is no evidence for mediastinal or pericardial gas. No consolidation or radiographic features of aspiration. No evidence for pleural fluid. There has been no change. IMPRESSION: No radiographic findings to suggest a postprocedural complication or other acute abnormalities. Dictated by: Dictated on workstation # [id number]
--- NOTE | 2020-03-13 11:51 | NUR ---
gag reflex back, nueros in tact, strength equal in анна arms and legs. Pt tolerated water and crackers.
[2020-03-13] MEDS ORDERED: proPOfol 200 MG/20 ML (DIPRIVAN) VIAL IV ONE (12:13)
--- NOTE | 2020-03-13 12:44 | Consultation - Surgery ---
VALERIE CHAPA MED STUDENT 03/13/20 1244: History of Present Illness History of Present Illness Patient Consulted On(cathleen/time) 03/13/20 12:43 Date Seen by Provider: Mar 13, 2020 Time Seen by Provider: 12:30 Reason for Visit: consultation for esophageal stricture History of Present Illness 84 YO male with hx of Afib on Xarelto, hip replacements, and hernia repair is dash ving difficulty swallowing liquids and solids, especially meat. Allergies and Home Medications Allergies Coded Allergies: Penicillins (Verified Allergy, Unknown, 08/05/19) Home Medications Ascorbic Acid 500 Mg Capsule, 500 MG PO DAILY, (Reported) Celecoxib 200 Mg Capsule, 200 MG PO DAILY, (Reported) TAKES BEFORE BREAKFAST Cyanocobalamin (Vitamin B-12) 1,000 Mcg Tablet, 1,000 MCG PO DAILY, (Reported) Diltiazem HCl 120 Mg Cap.er.24h, 120 MG PO DAILY, (Reported) TAKES AFTER BREAKFAST LAST FILLED 10/27/2019 #90 90 DAY SUPPLY Famotidine 20 Mg Tablet, 20 MG PO DAILY, (Reported) Folic Acid 0.4 Mg Tablet, 0.4 MG PO DAILY, (Reported) Metoprolol Succinate 25 Mg Tab.er.24h, 25 MG PO HS, (Reported) LAST FILLED 10/27/2019 #90 90 DAY SUPPLY Rivaroxaban 20 Mg Tablet, 20 MG PO 1800, (Reported) TAKES AFTER DINNER LAST FILLED 10/27/2019 #90 90 DAY SUPPLY Zinc Amino Acid Chelate 50 Mg Tablet, 50 MG PO DAILY, (Reported) Past Krwmnci-Phwgjh-Apbfao Hx Patient Social History Alcohol Use: Occasionally Uses Number of Drinks Today: AA Recreational Drug Use: No Smoking Status: Former Smoker Former Smoker, Quit: Apr 28, 1961 Type Used: Cigarettes 2nd Hand Smoke Exposure: No Recent Foreign Travel: No Recent Hopitalizations: No Immunizations Up To Date Tetanus Booster (TDap): Unknown Date of Influenza Vaccine: Mar 28, 2019 Seasonal Allergies Seasonal Allergies: No Surgeries History of Surgeries: Yes (R THR x2, L THR x1, Bilat Inguinal hernia repairs) Surgeries: Eye Surgery, Joint Replacement, Orthopedic Respiratory History of Respiratory Disorde: No Cardiovascular History of Cardiac Disorders: Yes (Ascending Aortic Aneurysm hx) Cardiac Disorders: Aneurysm, Atrial Fibrillation, Hypertension Neurological History of Neurological Disord: No Genitourinary History of Genitourinary Disor: No Gastrointestinal History of Gastrointestinal Di: Yes (Esophageal stricture hx, hx colon polyp) Gastrointestinal Disorders: Polyps Musculoskeletal History of Musculoskeletal Dis: Yes (Hip replacements, Hx bursitis R hip, Hx tendonitis biceps and rotator cuff) Musculoskeletal Disorders: Degenerate Disk Disease, Osteoporosis, Arthritis Endocrine History of Endocrine Disorders: No HEENT History of HEENT Disorders: No Cancer History of Cancer: No Psychosocial History of Psychiatric Problem: No Integumentary History of Skin or Integumenta: No Blood Transfusions History of Blood Disorders: No Review of Systems-General Gastrointestinal: see HPI All Other Systems Reviewed Negative Unless Noted: Yes Physical Exam-General Problems Physical Exam Vital Signs Vital Signs - First Documented 03/13/20 03/13/20 08:58 10:55 Temp 36.4 Pulse 69 Resp 18 B/P (MAP) 140/91 (107) Pulse Ox 98 O2 Delivery Room Air O2 Flow Rate 10.00 Capillary Refill : General Appearance: WD/WN, no apparent distress Eyes: Bilateral Eye Normal Inspection, Bilateral Eye EOMI Neck: normal inspection Respiratory: no respiratory distress, no accessory muscle use Gastrointestinal: No distended Extremities: normal inspection Neurologic/Psychiatric: alert, normal mood/affect, oriented x 3 Skin: normal color, warm/dry Lymphatic: no adenopathy Data Review Labs Laboratory Tests 03/13/20 08:41: White Blood Count 6.0, Red Blood Count 3.62L, Hemoglobin 13.1L, Hematocrit 39L, Mean Corpuscular Volume 106H, Mean Corpuscular Hemoglobin 36H, Mean Corpuscular Hemoglobin Concent 34, Red Cell Distribution Width 13.3, Platelet Count 159, Mean Platelet Volume 11.0H, Prothrombin Time 18.5H, INR Comment 1.5H, Activated Partial Thromboplast Time 35, Sodium Level 141, Potassium Level 3.8, Chloride Level 107, Carbon Dioxide Level 25, Anion Gap 9, Blood Urea Nitrogen 22H, Creatinine 0.93, Estimat Glomerular Filtration Rate > 60, BUN/Creatinine Ratio 24, Glucose Level 115H, Calcium Level 8.9, Corrected Calcium 9.1, Total Bilirubin 1.3H, Aspartate Amino Transf (AST/SGOT) 26, Alanine Aminotransferase (ALT/SGPT) 15, Alkaline Phosphatase 82, Total Protein 6.7, Albumin 3.7, Triglycerides Level 59, Cholesterol Level 145, LDL Cholesterol Direct 89, VLDL Cholesterol 12, HDL Cholesterol 52 Assessment/Plan Assessment/Plan Assessment/Plan Afib on Xarelto hx hip replacement bilaterally hx hernia repair esophageal strictures Plan for EGD with dilatation, hold Xarelto for 3 days prior RANDYCARMINA DO 03/13/202006: History of Present Illness History of Present Illness History of Present Illness Consult requested by Dr. Richard for esophageal stricture. Patient is an 84 year old male who has had several years of dysphagia. He has required EGD and dilation previously. Usually has more problems with solids (meats) and on rare occasion liquids. Nothing seems to make worse. Eating habits seems to make better at times. patient went for jl and scope aníbal ble to be passed. Denies any pain or complaints at this time. Denies n/v fever sweats chills shortness of breath or chest pain. Allergies and Home Medications Allergies Coded Allergies: Penicillins (Verified Allergy, Unknown, 08/05/19) Home Medications Ascorbic Acid 500 Mg Capsule, 500 MG PO DAILY, (Reported) Celecoxib 200 Mg Capsule, 200 MG PO DAILY, (Reported) TAKES BEFORE BREAKFAST Cyanocobalamin (Vitamin B-12) 1,000 Mcg Tablet, 1,000 MCG PO DAILY, (Reported) Diltiazem HCl 120 Mg Cap.er.24h, 120 MG PO DAILY, (Reported) TAKES AFTER BREAKFAST LAST FILLED 10/27/2019 #90 90 DAY SUPPLY Famotidine 20 Mg Tablet, 20 MG PO DAILY, (Reported) Folic Acid 0.4 Mg Tablet, 0.4 MG PO DAILY, (Reported) Metoprolol Succinate 25 Mg Tab.er.24h, 25 MG PO HS, (Reported) LAST FILLED 10/27/2019 #90 90 DAY SUPPLY Rivaroxaban 20 Mg Tablet, 20 MG PO 1800, (Reported) TAKES AFTER DINNER LAST FILLED 10/27/2019 #90 90 DAY SUPPLY Zinc Amino Acid Chelate 50 Mg Tablet, 50 MG PO DAILY, (Reported) Patient Home Medication List Home Medication List Reviewed: Yes Past Hmzkzdh-Txkfoq-Sltcyh Hx Reviewed Nursing Assessment Reviewed/Agree w Nursing PMH: Yes Family Medical History Significant Family History: No Pertinent Family Hx Review of Systems-General Constitutional: No chills EENTM: No ear pain, No blurred vision Respiratory: No cough, No dyspnea on exertion Cardiovascular: No chest pain, No edema Gastrointestinal: see HPI, dysphagia; No hematemesis Genitourinary: No decreased output, No discharge Musculoskeletal: No back pain, No joint pain Skin: No change in color, No change in hair/nails Psychiatric/Neurological: Denies Anxiety, Denies Depressed, Denies Emotional Problems All Other Systems Reviewed Negative Unless Noted: Yes (Negative excepted noted.) Physical Exam-General Problems Physical Exam General Appearance: WD/WN, no apparent distress HEENT: PERRL/EOMI, normal ENT inspection Neck: non-tender, full range of motion, supple, normal inspection Respiratory: chest non-tender, no respiratory distress, no accessory muscle use Cardiovascular: no JVD, irregularly irregular Gastrointestinal: non tender, soft; No distended; tenderness Rectal: deferred Back: no CVA tenderness, no vertebral tenderness Extremities: non-tender, no pedal edema Neurologic/Psychiatric: alert, normal mood/affect, oriented x 3 Skin: normal color, warm/dry Lymphatic: no adenopathy Assessment/Plan Assessment/Plan Assessment/Plan Afib on Xarelto Dysphagia, esophageal stricture We disucssed risks and benefits of EGD c possible dilation and he understands and wishes to proceed. Plan for EGD with dilatation, Discussed with Dr. Hilary acosat to hold Xarelto 48 hours prior to procedure to be scheduled. Supervisory-Addendum Brief Verification & Attestation Participated in pt care: history, MDM, physical Personally performed: exam, history, MDM, supervision of care Care discussed with: Medical Student Procedures: n/a Results interpretation: Verified all documentation Verification and Attestation of Medical Student E/M Service A medical student performed and documented this service in my presence. I reviewed and verified all information documented by the medical student and made modifications to such information, when appropriate. I personally performed the physical exam and medical decision making. Carmina Padilla, Mar 13, 2020,20:11 VALERIE CHAPA MED STUDENT Mar 13, 2020 12:44 CARMINA PADILLA DO Mar 13, 2020 20:07
== END 2020-03-13 13:00 | disposition home or self-care (01) ==
LOC: CATH 10:30
PROVIDERS: ATTEND Internal Medicine Cardiovascular Disease
DX: I48.20 Chronic atrial fibrillation, unspecified (principal); I10 Essential (primary) hypertension; E78.5 Hyperlipidemia, unspecified; R00.2 Palpitations; R73.09 Other abnormal glucose; I65.29 Occlusion and stenosis of unspecified carotid artery; M81.0 Age-related osteoporosis without current pathological fracture; M19.91 Primary osteoarthritis, unspecified site; K22.2 Esophageal obstruction; Z88.0 Allergy status to penicillin; Z87.891 Personal history of nicotine dependence; Z79.899 Other long term (current) drug therapy; I25.10 Atherosclerotic heart disease of native coronary artery without angina pectoris; Z79.01 Long term (current) use of anticoagulants; Z96.643 Presence of artificial hip joint, bilateral
CPT/HCPCS: 36415; 71045; 80053; 80061; 85027; 85610; 85730; 93005; 93312; 93320; 93325

== ENCOUNTER 2020-03-18 10:28 | Outpatient (RCR) | payer MEDICARE, OTHER ==
[~2020-03-18] VITALS: Ht 177 cm; Wt 65.0 kg
[~2020-03-18 10:28] MED LIST changes: -ENOXAPARIN 80 MG/0.8 ML (LOVENOX) SYR SC ONE; -LIDOCAINE 2% VISCOUS 15 ML UDC ONE; -LIDOCAINE 2% VISCOUS 15 ML UDC PO ONE; -MIDAZOLAM 2 MG/2 ML (VERSED) VIAL ONE; -NS IV 1000 ML 1,000 ML IV SCH; -NS IV 1000 ML 1,000 ML ONE; -proPOfol 200 MG/20 ML (DIPRIVAN) VIAL IV ONE
== END 2020-03-18 16:00 | disposition home or self-care (01) ==
LOC: PREOP 10:28
PROVIDERS: ATTEND Surgery
DX: Z01.818 Encounter for other preprocedural examination (principal)

== ENCOUNTER → 2020-03-20 | Outpatient (CLI) | payer MEDICARE, OTHER | LOC: LAB FS 10:00 | PROVIDERS: ATTEND Surgery | DX: Z01.818 Encounter for other preprocedural examination (principal); Z01.812 Encounter for preprocedural laboratory examination; R13.10 Dysphagia, unspecified; Z20.828 Contact with and (suspected) exposure to other viral communicable diseases | CPT/HCPCS: 87635 ==

== ENCOUNTER 2020-03-22 09:57 | Day surgery (SDC) | payer MEDICARE, OTHER ==
[~2020-03-22] VITALS: Ht 177 cm; Wt 65.0 kg
[2020-03-22] VITALS (7 sets, daily range): BP systolic 102–133; BP diastolic 66–81
[2020-03-22] MEDS ORDERED: LACTATED RINGERS 1,000 ML IV ONE (10:04)
[2020-03-22] MEDS ORDERED: LACTATED RINGERS 1,000 ML IV STA (10:34)
[2020-03-22] MEDS ORDERED: HURRICAINE EXT TUBE (BENZOCAINE) XX PRN (10:45)
[2020-03-22] MEDS ORDERED: proPOfol 200 MG/20 ML (DIPRIVAN) VIAL IV ONE (11:55)
[2020-03-22] MEDS ORDERED: MIDAZOLAM 2 MG/2 ML (VERSED) VIAL ONE (11:55)
[2020-03-22] MEDS ORDERED: LIDOCAINE PF 2% 5 ML (XYLOCAINE) VIAL ONE (11:57)
--- NOTE | 2020-03-22 12:01 | Progress Note-Pre Operative ---
Pre-Operative Progress Note H&P Reviewed The H&P was reviewed, patient examined and no changes noted. Date Seen by Provider: Mar 22, 2020 Time Seen by Provider: 12: Date H&P Reviewed: Mar 22, 2020 Time H&P Reviewed: 12:01 Pre-Operative Diagnosis: afib dysphagia, esophageal stricture CARMINA PADILLA DO Mar 22, 2020 12:01
--- NOTE | 2020-03-22 13:26 | Anesthesia-General Post-Op ---
MAC Patient Condition Mental Status/LOC: Same as Preop Cardiovascular: Satisfactory Nausea/Vomiting: Absent Respiratory: Satisfactory Pain: Controlled Complications: Absent Post Op Complications Complications None Follow Up Care/Instructions Patient Instructions None needed. Anesthesiology Discharge Order Discharge Order Patient is doing well, no complaints, stable vital signs, no apparent adverse anesthesia problems. No complications reported per nursing. DELIA LOPEZ CRNA Mar 22, 2020 13:26
--- NOTE | 2020-03-23 02:06 | OPERATIVE REPORT ---
DATE OF SERVICE: 03/22/2020 PREOPERATIVE DIAGNOSIS: Esophageal stricture. POSTOPERATIVE DIAGNOSES: 1. Esophageal stricture 2. Hiatal hernia. PROCEDURE: Esophagogastroduodenoscopy with biopsy of the gastroesophageal junction and dilatation of esophageal stricture to 15 mm. SURGEON: Carmina Damico DO ANESTHESIA: Per MOTION PICTURE OPERATOR. ESTIMATED BLOOD LOSS: Scant. COMPLICATIONS: None. INDICATIONS: The patient is an 84-year-old male who has a history of dysphagia symptoms and has had esophageal stricture that had to be dilated previously. The patient went for EBONY and the scope was unable to be inserted due to stricture. The patient was discussed risks and benefits of this procedure and he understands risks and benefits and wishes to proceed. Consent was signed in the chart. DESCRIPTION OF PROCEDURE: The patient was taken to the endoscopy suite, placed in left lateral recumbent position. Timeout was performed. Scope was inserted in mouth, down the esophagus and noting the esophageal stricture. Scope was able to be passed through this area into the stomach and into the duodenum without difficulty. There were no polyps, masses or ulcerations in the duodenum. Scope was slowly retracted back into the stomach where it was further insufflated. No polyps, masses or ulcerations. Scope was retroflexed noting a small hiatal hernia, no other pathology noted. Scope was returned to its normal position, slowly withdrawn to distal esophagus noting esophageal stricture and some slight erythematous changes. A balloon dilator was then advanced through the scope and serial dilations were made all the way up to 15 mm when a scant amount of bleeding was present. Therefore, further dilatation was stopped. The dilator was removed. Biopsy of the esophageal stricture was obtained and scope was then slowly retracted back noting no other pathology. The patient tolerated procedure well without any complications and taken to recovery room in stable condition. RECOMMENDATIONS: The patient will likely benefit from repeat EGD and possible further dilatation. Followup on biopsies as well. The patient informed that he may need serial dilatations. Job ID: [id number] DocumentID: [id number] Dictated Date: 03/22/2020 22:03:38 Cell Tuber Machine Date: 03/23/2020 02:05:09 Dictated By: CARMINA DAMICO DO
--- NOTE | 2020-03-27 11:27 | Anesthesia-General Post-Op ---
MAC Significant Intra-Op Events Notes Late entry from 03/13/20 at 1130 Patient Condition Mental Status/LOC: Same as Preop Cardiovascular: Satisfactory Nausea/Vomiting: Absent Respiratory: Satisfactory Pain: Controlled Complications: Absent Post Op Complications Complications None Follow Up Care/Instructions Patient Instructions None needed. Anesthesiology Discharge Order Discharge Order Patient is doing well, no complaints, stable vital signs, no apparent adverse anesthesia problems. No complications reported per nursing. DELIA LOPEZ CRNA Mar 27, 2020 11:26
== END 2020-03-22 13:25 | disposition home or self-care (01) ==
LOC: ENDO 09:57
PROVIDERS: ATTEND Surgery
DX: K22.2 Esophageal obstruction (principal); K44.9 Diaphragmatic hernia without obstruction or gangrene; I10 Essential (primary) hypertension; I48.91 Unspecified atrial fibrillation; M06.9 Rheumatoid arthritis, unspecified; M81.0 Age-related osteoporosis without current pathological fracture; I71.4 Abdominal aortic aneurysm, without rupture; M19.91 Primary osteoarthritis, unspecified site; Z79.899 Other long term (current) drug therapy; Z79.01 Long term (current) use of anticoagulants; Z96.643 Presence of artificial hip joint, bilateral
CPT/HCPCS: 88305

== ENCOUNTER → 2020-05-22 | Outpatient (CLI) | payer MEDICARE, OTHER ==
[~2020-05-22] VITALS: Ht 177 cm; Wt 66.0 kg
[~2020-05-22] MED LIST changes: +REGADENOSON 0.4 MG/5 ML SYR (LEXISCAN) IV ONE
[2020-05-22] MEDS: CATHETER FLUSH 10 ML SYR IV PRN ×2 (11:09→12:36)
[2020-05-22 12:34] VITALS: BP 159/103
--- NOTE | 2020-05-22 15:22 | Cardiology Stress Test Report ---
Stress Test Report Date of Procedure/Referring: Date of Procedure: May 22, 2020 PCP Izzy Patino Admitting Physician Franky Mendez MD Indications: Atrial fibrillation Baseline Heart Rate: 94 Baseline Blood Pressure: Blood Pressure Systolic: 159 Blood Pressure Diastolic: 103 Baseline Vitals Vital Signs Date Time Temp Pulse Resp B/P (MAP) Pulse Ox O2 Delivery O2 Flow Rate FiO2 05/22/20 12:34 94 16 159/103 (121) 99 Room Air Baseline EKG: Baseline EKG: A. fib, incomplete RBBB Summary After explaining the procedure to the patient, he signed a consent and then brought to the stress nuclear laboratory. Patient received 0.4 mg Lexiscan for stress test, ECG, heart rate and blood pressure were monitored continuously. Resting and stress dose of radio tracer were injected, imaging was acquired and reviewed in short axis, horizontal long axis and vertical long axis views. TID: 1.09 SSS: 0 SDS: 0 EF: 58 1. Patient tolerated Lexiscan well 2. Baseline atrial fibrillation persisted during test 3. Diaphragmatic attenuation with extracardiac attenuation, no significant ischemia or infarction on SPECT images 4. Normal left ventricular size, EF 58 percent. Gated images are unreliable due to atrial fibrillation TOI ROEM MD May 22, 2020 15:22
== END ==
LOC: CARD 12:00
PROVIDERS: ATTEND Physician Assistant
DX: I48.91 Unspecified atrial fibrillation (principal); J98.6 Disorders of diaphragm
CPT/HCPCS: 78452; 93017; A9502

== ENCOUNTER → 2020-05-27 | Outpatient (CLI) | payer MEDICARE, OTHER ==
[~2020-05-27] MED LIST changes: +CHOL100048 PO; +PANT40TA52 PO; -REGADENOSON 0.4 MG/5 ML SYR (LEXISCAN) IV ONE
== END ==
LOC: LAB FS 10:08
PROVIDERS: ATTEND Internal Medicine Cardiovascular Disease
DX: Z01.812 Encounter for preprocedural laboratory examination (principal); Z20.828 Contact with and (suspected) exposure to other viral communicable diseases
CPT/HCPCS: 87635

== ENCOUNTER 2020-05-29 09:30 | Day surgery (SDC) | payer MEDICARE, OTHER ==
[2020-05-29] VITALS (9 sets, daily range): BP systolic 111–133; BP diastolic 67–86
[~2020-05-29] VITALS: Ht 178 cm; Wt 66.0 kg
[2020-05-29 08:08] LABS: HEMOGLOBIN 12.6 g/dL (13.3-17.7); MEAN PLATELET VOLUME 11.4 fL (9.0-12.2); WHITE BLOOD COUNT 7.2 10^3/uL (4.3-11.0)
[2020-05-29 08:18] LABS: INR 2.9 (0.8-1.4); PROTHROMBIN TIME PATIENT 30.3 SEC (12.2-14.7)
[2020-05-29 08:24] LABS: ALANINE AMINOTRANSFERASE 16 U/L (0-55); ALBUMIN 3.6 GM/DL (3.2-4.5); ALKALINE PHOSPHATASE 85 U/L (40-136); BUN/CREATININE RATIO 27; CALCIUM 8.9 MG/DL (8.5-10.1); CARBON DIOXIDE 23 MMOL/L (21-32); CHLORIDE 110 MMOL/L (98-107); CHOLESTEROL 138 MG/DL (< 200); CREATININE SERUM 0.92 MG/DL (0.60-1.30); GFR ESTIMATED > 60; GLUCOSE 110 MG/DL (70-105); HDL CHOLESTEROL 49 MG/DL (40-60); SODIUM 143 MMOL/L (135-145); TOTAL PROTEIN 6.4 GM/DL (6.4-8.2); TRIGLYCERIDES 63 MG/DL (<150); VLDL CHOLESTEROL 13 MG/DL (5-40)
--- NOTE | 2020-05-29 08:39 | Diagnostic Imaging Report ---
EXAM: CHEST 1 VIEW, AP/PA ONLY INDICATION: Atrial fibrillation. COMPARISON: Chest radiograph 03/13/2020. FINDINGS: Normal heart size and central pulmonary vascularity. No focal pulmonary opacity, pleural effusion or pneumothorax. No acute osseous findings. IMPRESSION: No acute cardiopulmonary findings. Dictated by: Dictated on workstation # [id number]
--- NOTE | 2020-05-29 09:20 | Cardiac Procedure Note-CS/ASA ---
Pre-Procedure Note Pre-Op Procedure Note H&P Reviewed The H&P was reviewed, patient examined and no changes noted. Date H&P Reviewed: May 29, 2020 Time H&P Reviewed: 09:00 Conscious Sedation Pre-Proced Time 09:00 ASA Score 3 For ASA 3 and 4: Consider anesthesia and medical clearance. Also, for patients with a history of failed moderate sedation consider anesthesia. Airway Lungs Heart ASA score ASA 1: a normal healthy patient ASA 2: a patient with a mild systemic disease (mid diabetes, controlled hypertension, obesity x ASA 3: a patient with a severe systemic disease that limits activity (angina, COPD, prior Myocardial infarction) ASA 4: a patient with an incapacitating disease that is a constant threat to life (CHF, renal failure) ASA 5: a moribund patient not expected to survive 24 hrs. (ruptured aneurysm) ASA 6: a declared brain- patient whose organs are being harvested. For emergent operations, add the letter E after the classification Mallampati Classification Grade 3 Sedation Plan Analgesia, Amnesia, Plan communicated to team members, Discussed options with patient/fam, Discussed risks with patient/fam The patient is an appropriate candidate to undergo the planned procedure, sedation, and anesthesia. The patient immediately re-assessed prior to indication. TOI ROME MD May 29, 2020 09:20
--- NOTE | 2020-05-29 09:21 | Discharge Inst-Post CATH ---
Discharge Inst-CATH/EP Problems Reviewed?: Yes Post Cardiac Cath/EP D/C Inst Follow Up/Plan Appointment with Dr. Richard's office in 4-6 weeks <b>CARDIAC CATH/EP PROCEDURE DISCHARGE INSTRUCTIONS</b> ACTIVITY * Go Home directly and rest. * Limit activity of the leg (or wrist if it was used) for 7 days including aerobics, swimming, jogging, bicycling, etc. * Restrict stair-climbing for 7 days if possible, if not, climb up with your non-cath leg, then bring together on the same step. * Avoid lifting, pushing, pulling or excessive movement of the affected extremity for 7 days. * Customary sexual activity may be resumed after 2 days-use caution not to use a position that strains or causes pain to the affected extremity. * No driving for 24 hours. * NO SMOKING. * Avoid straining for bowel movements for 7 days. * Gentle walking on level ground is allowed. * Returning to work will depend on the type of procedure and the results. Your doctor will discuss this with you. CALL YOUR DOCTOR FOR ANY OF THE FOLLOWING: *If bleeding from the puncture site occurs- Apply gentle pressure to site with clean cloth and call your doctor or EMS. * If a knot or lump forms under the skin, increases in size, or causes pain. * If bruising appears to be worsening or moving further down your leg instead of disappearing. * Temperature above 101 F. CARE OF YOUR GROIN INCISION; * Bruising or purple discoloration of the skin near the puncture site is common. * You may shower only, no bathtub bathing for 5 days. Be careful to avoid slipping as your leg may feel stiff. * If a closure device was used on your femoral artery, please see the attached guide regarding care of the device and your leg. * Leave dressing on FOR 24 hours. CARE OF YOUR WRIST INCISION; * Bruising or purple discoloration of the skin near the puncture site is common. * You may shower. * DO NOT submerge wrist. * Leave dressing on FOR 24 hours. TOI RICHARD MD May 29, 2020 09:21
[~2020-05-29 09:30] MED LIST changes: +LIDOCAINE 2% VISCOUS 15 ML UDC ONE; +LIDOCAINE 2% VISCOUS 15 ML UDC PO ONE; +MIDAZOLAM 2 MG/2 ML (VERSED) VIAL ONE; +MIDAZOLAM 5 MG/5 ML (VERSED) VIAL IV ONE; +NS IV 1000 ML 1,000 ML IV ONE; +NS IV 1000 ML 1,000 ML ONE; +fentaNYL INJECTION 100 MCG/2 ML AMP IV ONE; +fentaNYL INJECTION 100 MCG/2 ML AMP ONE; +proPOfol 200 MG/20 ML (DIPRIVAN) VIAL IV ONE
--- NOTE | 2020-05-29 11:22 | Anesthesia-General Post-Op ---
MAC Patient Condition Mental Status/LOC: Same as Preop Cardiovascular: Satisfactory Nausea/Vomiting: Absent Respiratory: Satisfactory Pain: Controlled Complications: Absent Post Op Complications Complications None Follow Up Care/Instructions Patient Instructions None needed. Anesthesiology Discharge Order Discharge Order Patient is doing well, no complaints, stable vital signs, no apparent adverse anesthesia problems. No complications reported per nursing. TIERNEY SHULTZ CRNA May 29, 2020 11:22
--- NOTE | 2020-05-29 11:42 | Clinic Account Progress/Dx ---
Clinic Account Progress/Dx DIAGNOSIS: Date Seen by Provider: May 29, 2020 Time Seen by Provider: 09:00 Persistent atrial fibrillation TOI ROME MD May 29, 2020 11:42 am
--- NOTE | 2020-05-29 12:56 | NUR ---
SPOKE WITH THE PT (HE HAS HIS HOME MEDS) TO COMPLETE THE MED REC 01-21-2020 CELEBREX 200MG #90/90DS 04-18-2020 PANTOPRAZOLE 40MG #30/30DS 04-24-2020 DILTIAZEM ER 120MG #90/90DS 04-24-2020 METOPROLOL SUCC ER25MG #90/90DS 05-01-2020 XARELTO 20MG #90/90DS OTC MEDS: VIT C VIT B12 FOLIC ACID ZINC
== END 2020-05-29 11:17 | disposition home or self-care (01) ==
LOC: CATH 09:30 → SDC 09:53 → CATH 11:17
PROVIDERS: ATTEND Internal Medicine Cardiovascular Disease
DX: I48.19 Other persistent atrial fibrillation (principal); I10 Essential (primary) hypertension; Z79.899 Other long term (current) drug therapy; Z88.0 Allergy status to penicillin
CPT/HCPCS: 36415; 71045; 80053; 80061; 85027; 85610; 85730; 87081; 93005; 93312

== ENCOUNTER → 2021-03-25 | Outpatient (CLI) | payer MEDICARE, OTHER ==
[~2021-03-25] MED LIST changes: -FOLI0.4T2 PO; +FOLI0.4T6 PO; -LIDOCAINE 2% VISCOUS 15 ML UDC ONE; -LIDOCAINE 2% VISCOUS 15 ML UDC PO ONE; -MIDAZOLAM 2 MG/2 ML (VERSED) VIAL ONE; -MIDAZOLAM 5 MG/5 ML (VERSED) VIAL IV ONE; -NS IV 1000 ML 1,000 ML IV ONE; -NS IV 1000 ML 1,000 ML ONE; -fentaNYL INJECTION 100 MCG/2 ML AMP IV ONE; -fentaNYL INJECTION 100 MCG/2 ML AMP ONE; -proPOfol 200 MG/20 ML (DIPRIVAN) VIAL IV ONE
[2021-03-25 11:00] LABS: WHITE BLOOD COUNT 6.3 10^3/uL (4.3-11.0)
[2021-03-25 11:01] LABS: HEMATOCRIT 35 % (40-54); HEMOGLOBIN 11.6 g/dL (13.3-17.7); MEAN CORPUSCULAR HEMOGLOBIN 37 pg (25-34); MEAN CORPUSCULAR HGB CONC 34 g/dL (32-36); MEAN CORPUSCULAR VOLUME 109 fL (80-99); MEAN PLATELET VOLUME 10.6 fL (9.0-12.2); PLATELET COUNT 173 10^3/uL (130-400)
[2021-03-25 11:07] LABS: NEUTROPHILS % (AUTO) 54 % (42-75)
[2021-03-25 11:08] LABS: BASOPHILS # (AUTO) 0.1 10^3/uL (0.0-0.1); BASOPHILS % (AUTO) 1 % (0-10); EOSINOPHILS # (AUTO) 0.2 10^3/uL (0.0-0.3); EOSINOPHILS % (AUTO) 3 % (0-10); LYMPHOCYTES # (AUTO) 1.8 X 10^3 (1.0-4.0); LYMPHOCYTES % (AUTO) 29 % (12-44); MONOCYTES # (AUTO) 0.8 X 10^3 (0.0-1.0); MONOCYTES % (AUTO) 12 % (0-12); NEUTROPHILS # (AUTO) 3.4 X 10^3 (1.8-7.8)
== END ==
LOC: LAB FS 10:20
PROVIDERS: ATTEND Internal Medicine Hematology & Oncology
DX: E83.110 Hereditary hemochromatosis (principal)
CPT/HCPCS: 36415; 82728; 85025

== ENCOUNTER → 2021-04-08 | Outpatient (CLI) | payer MEDICARE, OTHER ==
[2021-04-08 12:01] LABS: HEMOGLOBIN 11.8 g/dL (13.3-17.7); MEAN CORPUSCULAR HEMOGLOBIN 37 pg (25-34)
[2021-04-08 12:02] LABS: HEMATOCRIT 35 % (40-54); MEAN CORPUSCULAR HGB CONC 34 g/dL (32-36); MEAN CORPUSCULAR VOLUME 109 fL (80-99); MEAN PLATELET VOLUME 11.1 fL (9.0-12.2); PLATELET COUNT 173 10^3/uL (130-400)
[2021-04-08 12:03] LABS: BASOPHILS # (AUTO) 0.1 10^3/uL (0.0-0.1); BASOPHILS % (AUTO) 1 % (0-10); EOSINOPHILS # (AUTO) 0.2 10^3/uL (0.0-0.3); EOSINOPHILS % (AUTO) 4 % (0-10); LYMPHOCYTES # (AUTO) 1.6 X 10^3 (1.0-4.0); LYMPHOCYTES % (AUTO) 27 % (12-44); MONOCYTES # (AUTO) 0.6 X 10^3 (0.0-1.0); MONOCYTES % (AUTO) 11 % (0-12); NEUTROPHILS # (AUTO) 3.4 X 10^3 (1.8-7.8); NEUTROPHILS % (AUTO) 57 % (42-75)
[2021-04-08 12:05] LABS: ATYPICAL LYMPHOCYTES 4 %; BASOPHILS % (MANUAL) 1 %; EOSINOPHILS % (MANUAL) 3 %; LYMPHOCYTES % (MANUAL) 32 %; MONOCYTES % (MANUAL) 5 %; NEUTROPHILS % (MANUAL) 55 %
[2021-04-08 12:06] LABS: PLATELET ESTIMATE ADEQUATE; RBC MORPH NORMAL
== END ==
LOC: LAB FS 10:15
PROVIDERS: ATTEND Internal Medicine Hematology & Oncology
DX: E83.110 Hereditary hemochromatosis (principal)
CPT/HCPCS: 36415; 82728; 85007; 85027

== ENCOUNTER → 2021-04-22 | Outpatient (CLI) | payer MEDICARE, OTHER ==
[2021-04-22 09:36] LABS: HEMATOCRIT 37 % (40-54); HEMOGLOBIN 12.4 g/dL (13.3-17.7); MEAN CORPUSCULAR HEMOGLOBIN 38 pg (25-34)
[2021-04-22 09:37] LABS: BASOPHILS % (AUTO) 0 % (0-10); EOSINOPHILS # (AUTO) 0.1 10^3/uL (0.0-0.3); EOSINOPHILS % (AUTO) 1 % (0-10); LYMPHOCYTES # (AUTO) 2.1 X 10^3 (1.0-4.0); LYMPHOCYTES % (AUTO) 21 % (12-44); MEAN CORPUSCULAR HGB CONC 34 g/dL (32-36); MEAN CORPUSCULAR VOLUME 112 fL (80-99); MEAN PLATELET VOLUME 10.4 fL (9.0-12.2); MONOCYTES # (AUTO) 0.8 X 10^3 (0.0-1.0); MONOCYTES % (AUTO) 8 % (0-12); NEUTROPHILS # (AUTO) 6.9 X 10^3 (1.8-7.8); NEUTROPHILS % (AUTO) 69 % (42-75); PLATELET COUNT 227 10^3/uL (130-400)
== END ==
LOC: LAB FS 08:54
PROVIDERS: ATTEND Internal Medicine Hematology & Oncology
DX: E83.110 Hereditary hemochromatosis (principal)
CPT/HCPCS: 36415; 82728; 85025

== ENCOUNTER 2021-06-05 10:50 | Outpatient (RCR) | payer MEDICARE, OTHER ==
[2021-03-11 10:39] LABS: BASOPHILS # (AUTO) 0.1 10^3/uL (0.0-0.1); BASOPHILS % (AUTO) 1 % (0-10); EOSINOPHILS # (AUTO) 0.2 10^3/uL (0.0-0.3); EOSINOPHILS % (AUTO) 4 % (0-10); HEMATOCRIT 34 % (40-54); HEMOGLOBIN 11.3 g/dL (13.3-17.7); LYMPHOCYTES # (AUTO) 1.6 10^3/uL (1.0-4.0); LYMPHOCYTES % (AUTO) 27 % (12-44); MEAN CORPUSCULAR HEMOGLOBIN 37 pg (25-34); MEAN CORPUSCULAR HGB CONC 33 g/dL (32-36); MEAN CORPUSCULAR VOLUME 110 fL (80-99); MEAN PLATELET VOLUME 11.3 fL (9.0-12.2); MONOCYTES # (AUTO) 0.6 10^3/uL (0.0-1.0); MONOCYTES % (AUTO) 10 % (0-12); NEUTROPHILS # (AUTO) 3.5 10^3/uL (1.8-7.8); NEUTROPHILS % (AUTO) 58 % (42-75); PLATELET COUNT 168 10^3/uL (130-400)
[2021-03-13 10:00] VITALS: BP 131/85
[2021-03-27 11:00] VITALS: BP 132/86
[2021-04-10 11:30] VITALS: BP 125/77
[2021-04-24 10:55] VITALS: BP 139/84
[2021-05-08 14:35] VITALS: BP 122/75
[2021-05-21 12:00] VITALS: BP 117/68
[~2021-06-05] VITALS: Ht 177.8 cm; Wt 66.0 kg
[2021-06-05 10:15] VITALS: BP 128/90
== END 2021-06-09 | disposition home or self-care (01) ==
LOC: SDC 10:50
PROVIDERS: ATTEND Internal Medicine Hematology & Oncology
DX: E83.110 Hereditary hemochromatosis (principal)
CPT/HCPCS: 36415; 36592; 82728; 85025

== ENCOUNTER 2021-06-17 10:45 | Outpatient (RCR) | payer MEDICARE, OTHER ==
[2021-05-06 09:47] LABS: WHITE BLOOD COUNT 7.7 10^3/uL (4.3-11.0)
[2021-05-06 09:49] LABS: HEMATOCRIT 37 % (40-54); HEMOGLOBIN 12.4 g/dL (13.3-17.7); MEAN CORPUSCULAR HEMOGLOBIN 38 pg (25-34); MEAN CORPUSCULAR HGB CONC 34 g/dL (32-36); MEAN CORPUSCULAR VOLUME 113 fL (80-99)
[2021-05-06 09:50] LABS: BASOPHILS # (AUTO) 0.1 10^3/uL (0.0-0.1); BASOPHILS % (AUTO) 1 % (0-10); EOSINOPHILS # (AUTO) 0.3 10^3/uL (0.0-0.3); EOSINOPHILS % (AUTO) 4 % (0-10); LYMPHOCYTES % (AUTO) 25 % (12-44); MEAN PLATELET VOLUME 10.9 fL (9.0-12.2); MONOCYTES # (AUTO) 0.7 X 10^3 (0.0-1.0); MONOCYTES % (AUTO) 9 % (0-12); NEUTROPHILS # (AUTO) 4.7 X 10^3 (1.8-7.8); NEUTROPHILS % (AUTO) 61 % (42-75); PLATELET COUNT 175 10^3/uL (130-400)
[2021-05-19 13:40] LABS: HEMATOCRIT 33 % (40-54); HEMOGLOBIN 11.1 g/dL (13.3-17.7); MEAN CORPUSCULAR HEMOGLOBIN 39 pg (25-34); MEAN CORPUSCULAR VOLUME 114 fL (80-99); WHITE BLOOD COUNT 6.4 10^3/uL (4.3-11.0)
[2021-05-19 13:41] LABS: BASOPHILS # (AUTO) 0.1 10^3/uL (0.0-0.1); BASOPHILS % (AUTO) 1 % (0-10); EOSINOPHILS # (AUTO) 0.2 10^3/uL (0.0-0.3); EOSINOPHILS % (AUTO) 3 % (0-10); LYMPHOCYTES # (AUTO) 1.8 X 10^3 (1.0-4.0); LYMPHOCYTES % (AUTO) 28 % (12-44); MEAN CORPUSCULAR HGB CONC 34 g/dL (32-36); MEAN PLATELET VOLUME 10.3 fL (9.0-12.2); MONOCYTES # (AUTO) 0.8 X 10^3 (0.0-1.0); MONOCYTES % (AUTO) 12 % (0-12); NEUTROPHILS # (AUTO) 3.6 X 10^3 (1.8-7.8); NEUTROPHILS % (AUTO) 56 % (42-75); PLATELET COUNT 202 10^3/uL (130-400)
[2021-05-19 13:42] LABS: BAND NEUTROPHILS 3 %; EOSINOPHILS % (MANUAL) 1 %; LYMPHOCYTES % (MANUAL) 14 %; MONOCYTES % (MANUAL) 14 %; NEUTROPHILS % (MANUAL) 54 %
[2021-05-19 13:43] LABS: ATYPICAL LYMPHOCYTES 14 %
[2021-06-03 10:58] LABS: WHITE BLOOD COUNT 7.8 10^3/uL (4.3-11.0)
[2021-06-03 10:59] LABS: BASOPHILS % (AUTO) 1 % (0-10); EOSINOPHILS % (AUTO) 2 % (0-10); HEMATOCRIT 34 % (40-54); HEMOGLOBIN 11.6 g/dL (13.3-17.7); LYMPHOCYTES % (AUTO) 29 % (12-44); MEAN CORPUSCULAR HEMOGLOBIN 38 pg (25-34); MEAN CORPUSCULAR HGB CONC 34 g/dL (32-36); MEAN CORPUSCULAR VOLUME 113 fL (80-99); MEAN PLATELET VOLUME 10.2 fL (9.0-12.2); MONOCYTES % (AUTO) 13 % (0-12); NEUTROPHILS # (AUTO) 4.4 X 10^3 (1.8-7.8); NEUTROPHILS % (AUTO) 56 % (42-75); PLATELET COUNT 217 10^3/uL (130-400)
[2021-06-03 11:00] LABS: BASOPHILS # (AUTO) 0.1 10^3/uL (0.0-0.1); EOSINOPHILS # (AUTO) 0.1 10^3/uL (0.0-0.3); LYMPHOCYTES # (AUTO) 2.3 X 10^3 (1.0-4.0)
[2021-06-17 11:53] LABS: HEMATOCRIT 35 % (40-54); HEMOGLOBIN 11.6 g/dL (13.3-17.7); MEAN CORPUSCULAR HEMOGLOBIN 38 pg (25-34); MEAN CORPUSCULAR VOLUME 113 fL (80-99); WHITE BLOOD COUNT 7.1 10^3/uL (4.3-11.0)
[2021-06-17 11:54] LABS: BASOPHILS % (AUTO) 1 % (0-10); EOSINOPHILS % (AUTO) 3 % (0-10); LYMPHOCYTES % (AUTO) 28 % (12-44); MEAN CORPUSCULAR HGB CONC 33 g/dL (32-36); MEAN PLATELET VOLUME 10.2 fL (9.0-12.2); MONOCYTES # (AUTO) 0.8 X 10^3 (0.0-1.0); MONOCYTES % (AUTO) 11 % (0-12); NEUTROPHILS # (AUTO) 4.1 X 10^3 (1.8-7.8); NEUTROPHILS % (AUTO) 57 % (42-75); PLATELET COUNT 207 10^3/uL (130-400)
[2021-06-17 11:55] LABS: BASOPHILS # (AUTO) 0.1 10^3/uL (0.0-0.1); EOSINOPHILS # (AUTO) 2.2 10^3/uL (0.0-0.3)
== END 2021-06-27 | disposition home or self-care (01) ==
LOC: LAB FS 10:45
PROVIDERS: ATTEND Internal Medicine Hematology & Oncology
DX: E83.110 Hereditary hemochromatosis (principal)
CPT/HCPCS: 36415; 82728; 85007; 85025; 85027

== ENCOUNTER 2021-06-19 10:51 | Outpatient (RCR) | payer MEDICARE, OTHER ==
[~2021-06-19] VITALS: Ht 175.3 cm; Wt 66.0 kg
[2021-06-19 11:22] VITALS: BP 116/92
== END 2021-06-27 | disposition home or self-care (01) ==
LOC: SDC 10:51
PROVIDERS: ATTEND Internal Medicine Hematology & Oncology
DX: E83.110 Hereditary hemochromatosis (principal)
CPT/HCPCS: 36592

== ENCOUNTER → 2021-07-15 | Outpatient (CLI) | payer MEDICARE, OTHER ==
[2021-07-15 10:38] LABS: HEMATOCRIT 35 % (40-54); HEMOGLOBIN 11.8 g/dL (13.3-17.7); MEAN CORPUSCULAR HEMOGLOBIN 38 pg (25-34); MEAN CORPUSCULAR VOLUME 113 fL (80-99); WHITE BLOOD COUNT 6.8 10^3/uL (4.3-11.0)
[2021-07-15 10:39] LABS: BASOPHILS # (AUTO) 0.1 10^3/uL (0.0-0.1); BASOPHILS % (AUTO) 1 % (0-10); EOSINOPHILS # (AUTO) 0.2 10^3/uL (0.0-0.3); EOSINOPHILS % (AUTO) 3 % (0-10); LYMPHOCYTES # (AUTO) 2.2 X 10^3 (1.0-4.0); LYMPHOCYTES % (AUTO) 32 % (12-44); MEAN CORPUSCULAR HGB CONC 34 g/dL (32-36); MEAN PLATELET VOLUME 10.6 fL (9.0-12.2); MONOCYTES # (AUTO) 0.8 X 10^3 (0.0-1.0); MONOCYTES % (AUTO) 12 % (0-12); NEUTROPHILS # (AUTO) 3.5 X 10^3 (1.8-7.8); NEUTROPHILS % (AUTO) 52 % (42-75); PLATELET COUNT 196 10^3/uL (130-400)
== END ==
LOC: LAB FS 10:12
PROVIDERS: ATTEND Pathology Anatomic Pathology & Clinical Pathology
DX: Z01.89 Encounter for other specified special examinations (principal)
CPT/HCPCS: 36415; 82728; 85025

== ENCOUNTER 2021-07-22 10:54 | Outpatient (RCR) | payer MEDICARE, OTHER ==
[2021-07-01 10:48] LABS: HEMATOCRIT 34 % (40-54); HEMOGLOBIN 11.4 g/dL (13.3-17.7); MEAN CORPUSCULAR HEMOGLOBIN 38 pg (25-34); MEAN CORPUSCULAR HGB CONC 34 g/dL (32-36); MEAN CORPUSCULAR VOLUME 113 fL (80-99); PLATELET COUNT 197 10^3/uL (130-400); WHITE BLOOD COUNT 6.6 10^3/uL (4.3-11.0)
[2021-07-01 10:49] LABS: BASOPHILS # (AUTO) 0.1 10^3/uL (0.0-0.1); BASOPHILS % (AUTO) 1 % (0-10); EOSINOPHILS # (AUTO) 0.2 10^3/uL (0.0-0.3); EOSINOPHILS % (AUTO) 3 % (0-10); LYMPHOCYTES # (AUTO) 1.8 X 10^3 (1.0-4.0); LYMPHOCYTES % (AUTO) 28 % (12-44); MEAN PLATELET VOLUME 10.3 fL (9.0-12.2); MONOCYTES # (AUTO) 0.6 X 10^3 (0.0-1.0); MONOCYTES % (AUTO) 8 % (0-12); NEUTROPHILS % (AUTO) 60 % (42-75)
[2021-07-22 11:30] LABS: BASOPHILS % (AUTO) 1 % (0-10); EOSINOPHILS % (AUTO) 3 % (0-10); HEMATOCRIT 35 % (40-54); HEMOGLOBIN 11.9 g/dL (13.3-17.7); LYMPHOCYTES % (AUTO) 29 % (12-44); MEAN CORPUSCULAR HEMOGLOBIN 38 pg (25-34); MEAN CORPUSCULAR HGB CONC 34 g/dL (32-36); MEAN CORPUSCULAR VOLUME 112 fL (80-99); MEAN PLATELET VOLUME 11.3 fL (9.0-12.2); MONOCYTES % (AUTO) 10 % (0-12); PLATELET COUNT 176 10^3/uL (130-400); WHITE BLOOD COUNT 7.4 10^3/uL (4.3-11.0)
[2021-07-22 11:31] LABS: BASOPHILS # (AUTO) 0.1 10^3/uL (0.0-0.1); EOSINOPHILS # (AUTO) 0.2 10^3/uL (0.0-0.3); LYMPHOCYTES # (AUTO) 2.2 X 10^3 (1.0-4.0); MONOCYTES # (AUTO) 0.7 X 10^3 (0.0-1.0); NEUTROPHILS # (AUTO) 4.2 X 10^3 (1.8-7.8); NEUTROPHILS % (AUTO) 57 % (42-75)
== END 2021-07-28 | disposition home or self-care (01) ==
LOC: LAB FS 10:54
PROVIDERS: ATTEND Internal Medicine Hematology & Oncology
DX: E83.110 Hereditary hemochromatosis (principal)
CPT/HCPCS: 36415; 82728; 85025

== ENCOUNTER 2021-07-24 10:42 | Outpatient (RCR) | payer MEDICARE, OTHER ==
[2021-07-03 13:10] VITALS: BP 135/80
[2021-07-24 11:05] VITALS: BP 143/79
== END 2021-07-28 | disposition home or self-care (01) ==
LOC: SDC 10:42
PROVIDERS: ATTEND Internal Medicine Hematology & Oncology
DX: E83.110 Hereditary hemochromatosis (principal)
CPT/HCPCS: 36592

== ENCOUNTER 2021-08-19 10:00 | Outpatient (RCR) | payer MEDICARE, OTHER ==
[2021-08-05 12:09] LABS: BASOPHILS # (AUTO) 0.1 10^3/uL (0.0-0.1); BASOPHILS % (AUTO) 1 % (0-10); EOSINOPHILS # (AUTO) 0.2 10^3/uL (0.0-0.3); EOSINOPHILS % (AUTO) 3 % (0-10); HEMATOCRIT 34 % (40-54); HEMOGLOBIN 11.5 g/dL (13.3-17.7); LYMPHOCYTES # (AUTO) 2.2 10^3/uL (1.0-4.0); LYMPHOCYTES % (AUTO) 28 % (12-44); MEAN CORPUSCULAR HEMOGLOBIN 38 pg (25-34); MEAN CORPUSCULAR HGB CONC 34 g/dL (32-36); MEAN CORPUSCULAR VOLUME 111 fL (80-99); MEAN PLATELET VOLUME 11.1 fL (9.0-12.2); MONOCYTES # (AUTO) 0.8 10^3/uL (0.0-1.0); MONOCYTES % (AUTO) 11 % (0-12); NEUTROPHILS # (AUTO) 4.4 10^3/uL (1.8-7.8); NEUTROPHILS % (AUTO) 57 % (42-75); PLATELET COUNT 185 10^3/uL (130-400); WHITE BLOOD COUNT 7.7 10^3/uL (4.3-11.0)
[2021-08-19 12:46] LABS: BASOPHILS # (AUTO) 0.1 10^3/uL (0.0-0.1); BASOPHILS % (AUTO) 1 % (0-10); EOSINOPHILS # (AUTO) 0.2 10^3/uL (0.0-0.3); EOSINOPHILS % (AUTO) 2 % (0-10); HEMATOCRIT 34 % (40-54); HEMOGLOBIN 11.7 g/dL (13.3-17.7); LYMPHOCYTES % (AUTO) 29 % (12-44); MEAN CORPUSCULAR HEMOGLOBIN 38 pg (25-34); MEAN CORPUSCULAR HGB CONC 34 g/dL (32-36); MEAN CORPUSCULAR VOLUME 110 fL (80-99); MEAN PLATELET VOLUME 11.2 fL (9.0-12.2); MONOCYTES # (AUTO) 0.8 10^3/uL (0.0-1.0); MONOCYTES % (AUTO) 11 % (0-12); NEUTROPHILS # (AUTO) 3.9 10^3/uL (1.8-7.8); NEUTROPHILS % (AUTO) 56 % (42-75); PLATELET COUNT 174 10^3/uL (130-400)
== END 2021-08-25 | disposition home or self-care (01) ==
LOC: LAB FS 10:00
PROVIDERS: ATTEND Internal Medicine Hematology & Oncology
DX: E83.110 Hereditary hemochromatosis (principal)
CPT/HCPCS: 36415; 82728; 85025

== ENCOUNTER 2021-08-21 10:55 | Outpatient (RCR) | payer MEDICARE, OTHER ==
[2021-08-07 11:08] VITALS: BP 137/94
[2021-08-21 11:00] VITALS: BP 131/84
== END 2021-08-25 | disposition home or self-care (01) ==
LOC: SDC 10:55
PROVIDERS: ATTEND Internal Medicine Hematology & Oncology
DX: E83.110 Hereditary hemochromatosis (principal)
CPT/HCPCS: 36592

== ENCOUNTER → 2021-09-02 | Outpatient (CLI) | payer MEDICARE, OTHER ==
[2021-09-02 12:44] LABS: ALBUMIN 3.8 GM/DL (3.2-4.5); BILIRUBIN,TOTAL 0.6 MG/DL (0.1-1.0); CALCIUM 9.4 MG/DL (8.5-10.1); CREATININE SERUM 0.86 MG/DL (0.60-1.30); POTASSIUM 3.9 MMOL/L (3.6-5.0); TOTAL PROTEIN 6.7 GM/DL (6.4-8.2)
== END ==
LOC: LAB FS 09:41
PROVIDERS: ATTEND Physician Assistant
DX: E78.2 Mixed hyperlipidemia (principal); I48.91 Unspecified atrial fibrillation; I10 Essential (primary) hypertension; I65.23 Occlusion and stenosis of bilateral carotid arteries
CPT/HCPCS: 36415; 80053; 80061

== ENCOUNTER 2021-09-16 10:34 | Outpatient (RCR) | payer MEDICARE, OTHER ==
[2021-09-02 10:26] LABS: BASOPHILS # (AUTO) 0.1 10^3/uL (0.0-0.1); BASOPHILS % (AUTO) 1 % (0-10); EOSINOPHILS # (AUTO) 0.2 10^3/uL (0.0-0.3); EOSINOPHILS % (AUTO) 3 % (0-10); HEMATOCRIT 35 % (40-54); LYMPHOCYTES # (AUTO) 1.8 10^3/uL (1.0-4.0); LYMPHOCYTES % (AUTO) 27 % (12-44); MEAN CORPUSCULAR HEMOGLOBIN 37 pg (25-34); MEAN CORPUSCULAR HGB CONC 34 g/dL (32-36); MEAN CORPUSCULAR VOLUME 110 fL (80-99); MONOCYTES # (AUTO) 0.6 10^3/uL (0.0-1.0); MONOCYTES % (AUTO) 9 % (0-12); NEUTROPHILS % (AUTO) 60 % (42-75); PLATELET COUNT 174 10^3/uL (130-400); WHITE BLOOD COUNT 6.7 10^3/uL (4.3-11.0)
[2021-09-16 11:00] LABS: BASOPHILS # (AUTO) 0.1 10^3/uL (0.0-0.1); BASOPHILS % (AUTO) 1 % (0-10); EOSINOPHILS # (AUTO) 0.2 10^3/uL (0.0-0.3); EOSINOPHILS % (AUTO) 3 % (0-10); HEMATOCRIT 34 % (40-54); HEMOGLOBIN 11.4 g/dL (13.3-17.7); LYMPHOCYTES # (AUTO) 1.9 10^3/uL (1.0-4.0); LYMPHOCYTES % (AUTO) 28 % (12-44); MEAN CORPUSCULAR HEMOGLOBIN 37 pg (25-34); MEAN CORPUSCULAR HGB CONC 33 g/dL (32-36); MEAN CORPUSCULAR VOLUME 110 fL (80-99); MEAN PLATELET VOLUME 10.7 fL (9.0-12.2); MONOCYTES # (AUTO) 0.8 10^3/uL (0.0-1.0); MONOCYTES % (AUTO) 12 % (0-12); NEUTROPHILS # (AUTO) 3.6 10^3/uL (1.8-7.8); NEUTROPHILS % (AUTO) 56 % (42-75); PLATELET COUNT 173 10^3/uL (130-400); WHITE BLOOD COUNT 6.5 10^3/uL (4.3-11.0)
== END 2021-09-25 | disposition home or self-care (01) ==
LOC: LAB FS 10:34
PROVIDERS: ATTEND Internal Medicine Hematology & Oncology
DX: E83.110 Hereditary hemochromatosis (principal)
CPT/HCPCS: 36415; 82728; 85025

== ENCOUNTER 2021-09-18 10:53 | Outpatient (RCR) | payer MEDICARE, OTHER ==
[2021-09-04 10:50] VITALS: BP 124/98
[2021-09-18 11:04] VITALS: BP 143/81
== END 2021-09-25 | disposition home or self-care (01) ==
LOC: SDC 10:53
PROVIDERS: ATTEND Internal Medicine Hematology & Oncology
DX: E83.110 Hereditary hemochromatosis (principal)
CPT/HCPCS: 36592

== ENCOUNTER 2021-10-14 11:11 | Outpatient (RCR) | payer MEDICARE, OTHER ==
[2021-09-30 10:37] LABS: BASOPHILS # (AUTO) 0.1 10^3/uL (0.0-0.1); BASOPHILS % (AUTO) 1 % (0-10); EOSINOPHILS # (AUTO) 0.2 10^3/uL (0.0-0.3); EOSINOPHILS % (AUTO) 3 % (0-10); HEMATOCRIT 34 % (40-54); HEMOGLOBIN 11.4 g/dL (13.3-17.7); LYMPHOCYTES # (AUTO) 1.7 10^3/uL (1.0-4.0); LYMPHOCYTES % (AUTO) 26 % (12-44); MEAN CORPUSCULAR HEMOGLOBIN 37 pg (25-34); MEAN CORPUSCULAR HGB CONC 34 g/dL (32-36); MEAN CORPUSCULAR VOLUME 109 fL (80-99); MEAN PLATELET VOLUME 10.5 fL (9.0-12.2); MONOCYTES # (AUTO) 0.6 10^3/uL (0.0-1.0); MONOCYTES % (AUTO) 10 % (0-12); NEUTROPHILS # (AUTO) 3.9 10^3/uL (1.8-7.8); NEUTROPHILS % (AUTO) 61 % (42-75); PLATELET COUNT 179 10^3/uL (130-400); WHITE BLOOD COUNT 6.5 10^3/uL (4.3-11.0)
[2021-10-14 12:02] LABS: BASOPHILS # (AUTO) 0.1 10^3/uL (0.0-0.1); BASOPHILS % (AUTO) 1 % (0-10); EOSINOPHILS # (AUTO) 0.2 10^3/uL (0.0-0.3); EOSINOPHILS % (AUTO) 3 % (0-10); HEMATOCRIT 33 % (40-54); HEMOGLOBIN 11.4 g/dL (13.3-17.7); LYMPHOCYTES # (AUTO) 2.3 10^3/uL (1.0-4.0); LYMPHOCYTES % (AUTO) 32 % (12-44); MEAN CORPUSCULAR HEMOGLOBIN 37 pg (25-34); MEAN CORPUSCULAR HGB CONC 34 g/dL (32-36); MEAN CORPUSCULAR VOLUME 109 fL (80-99); MEAN PLATELET VOLUME 10.7 fL (9.0-12.2); MONOCYTES # (AUTO) 0.9 10^3/uL (0.0-1.0); MONOCYTES % (AUTO) 13 % (0-12); NEUTROPHILS # (AUTO) 3.5 10^3/uL (1.8-7.8); NEUTROPHILS % (AUTO) 50 % (42-75); PLATELET COUNT 176 10^3/uL (130-400)
== END 2021-10-25 | disposition home or self-care (01) ==
LOC: LAB FS 11:11
PROVIDERS: ATTEND Internal Medicine Hematology & Oncology
DX: E83.110 Hereditary hemochromatosis (principal)
CPT/HCPCS: 36415; 82728; 85025

== ENCOUNTER 2021-10-16 11:00 | Outpatient (RCR) | payer MEDICARE, OTHER ==
[2021-10-02 11:30] VITALS: BP 147/90
== END 2021-10-25 | disposition home or self-care (01) ==
LOC: SDC 11:00
PROVIDERS: ATTEND Internal Medicine Hematology & Oncology
DX: E83.110 Hereditary hemochromatosis (principal)
CPT/HCPCS: 36415; 36592

== ENCOUNTER → 2021-10-28 | Outpatient (CLI) | payer MEDICARE, OTHER ==
[2021-10-28 11:45] LABS: BASOPHILS # (AUTO) 0.1 10^3/uL (0.0-0.1); BASOPHILS % (AUTO) 1 % (0-10); EOSINOPHILS # (AUTO) 0.2 10^3/uL (0.0-0.3); EOSINOPHILS % (AUTO) 3 % (0-10); HEMATOCRIT 34 % (40-54); HEMOGLOBIN 11.5 g/dL (13.3-17.7); LYMPHOCYTES # (AUTO) 1.9 10^3/uL (1.0-4.0); LYMPHOCYTES % (AUTO) 29 % (12-44); MEAN CORPUSCULAR HEMOGLOBIN 38 pg (25-34); MEAN CORPUSCULAR HGB CONC 34 g/dL (32-36); MEAN CORPUSCULAR VOLUME 112 fL (80-99); MEAN PLATELET VOLUME 10.9 fL (9.0-12.2); MONOCYTES # (AUTO) 0.7 10^3/uL (0.0-1.0); MONOCYTES % (AUTO) 11 % (0-12); NEUTROPHILS # (AUTO) 3.5 10^3/uL (1.8-7.8); NEUTROPHILS % (AUTO) 56 % (42-75); PLATELET COUNT 187 10^3/uL (130-400); WHITE BLOOD COUNT 6.3 10^3/uL (4.3-11.0)
== END ==
LOC: LAB FS 10:55
PROVIDERS: ATTEND Internal Medicine Hematology & Oncology
DX: E83.110 Hereditary hemochromatosis (principal)
CPT/HCPCS: 36415; 82728; 85025

== ENCOUNTER 2021-11-11 09:57 | Outpatient (RCR) | payer MEDICARE, OTHER ==
[2021-11-11 10:25] LABS: BASOPHILS # (AUTO) 0.1 10^3/uL (0.0-0.1); BASOPHILS % (AUTO) 1 % (0-10); EOSINOPHILS # (AUTO) 0.2 10^3/uL (0.0-0.3); EOSINOPHILS % (AUTO) 3 % (0-10); HEMATOCRIT 34 % (40-54); HEMOGLOBIN 11.4 g/dL (13.3-17.7); LYMPHOCYTES # (AUTO) 1.8 10^3/uL (1.0-4.0); LYMPHOCYTES % (AUTO) 31 % (12-44); MEAN CORPUSCULAR HEMOGLOBIN 37 pg (25-34); MEAN CORPUSCULAR HGB CONC 34 g/dL (32-36); MEAN CORPUSCULAR VOLUME 110 fL (80-99); MEAN PLATELET VOLUME 10.8 fL (9.0-12.2); MONOCYTES # (AUTO) 0.7 10^3/uL (0.0-1.0); MONOCYTES % (AUTO) 12 % (0-12); NEUTROPHILS % (AUTO) 53 % (42-75); PLATELET COUNT 165 10^3/uL (130-400); WHITE BLOOD COUNT 5.7 10^3/uL (4.3-11.0)
[2021-11-11 12:01] LABS: ATYPICAL LYMPHOCYTES 19 %; BAND NEUTROPHILS 2 %; BASOPHILS % (MANUAL) 0 %; ELLIPT/OVALOCYTES SLIGHT; EOSINOPHILS % (MANUAL) 4 %; LYMPHOCYTES % (MANUAL) 12 %; MONOCYTES % (MANUAL) 16 %; NEUTROPHILS % (MANUAL) 47 %; PLATELET ESTIMATE NORMAL
== END 2021-11-25 | disposition home or self-care (01) ==
LOC: LAB FS 09:57
PROVIDERS: ATTEND Internal Medicine Hematology & Oncology
DX: E83.110 Hereditary hemochromatosis (principal)
CPT/HCPCS: 36415; 82728; 85007; 85027

== ENCOUNTER 2021-11-13 10:55 | Outpatient (RCR) | payer MEDICARE, OTHER ==
[2021-10-30 12:23] VITALS: BP 133/80
[2021-10-30 12:42] VITALS: BP 133/80
[2021-11-13 11:30] VITALS: BP 116/78
== END 2021-11-25 | disposition home or self-care (01) ==
LOC: SDC 10:55
PROVIDERS: ATTEND Internal Medicine Hematology & Oncology
DX: E83.110 Hereditary hemochromatosis (principal)
CPT/HCPCS: 36592

== ENCOUNTER → 2021-11-25 | Outpatient (RCR) | payer MEDICARE, OTHER ==
[2021-11-25 10:33] LABS: BASOPHILS # (AUTO) 0.1 10^3/uL (0.0-0.1); BASOPHILS % (AUTO) 1 % (0-10); EOSINOPHILS # (AUTO) 0.2 10^3/uL (0.0-0.3); EOSINOPHILS % (AUTO) 3 % (0-10); HEMATOCRIT 34 % (40-54); HEMOGLOBIN 11.3 g/dL (13.3-17.7); LYMPHOCYTES # (AUTO) 1.8 10^3/uL (1.0-4.0); LYMPHOCYTES % (AUTO) 28 % (12-44); MEAN CORPUSCULAR HEMOGLOBIN 37 pg (25-34); MEAN CORPUSCULAR HGB CONC 33 g/dL (32-36); MEAN CORPUSCULAR VOLUME 112 fL (80-99); MEAN PLATELET VOLUME 10.4 fL (9.0-12.2); MONOCYTES # (AUTO) 0.8 10^3/uL (0.0-1.0); MONOCYTES % (AUTO) 12 % (0-12); NEUTROPHILS # (AUTO) 3.5 10^3/uL (1.8-7.8); NEUTROPHILS % (AUTO) 55 % (42-75); PLATELET COUNT 162 10^3/uL (130-400); WHITE BLOOD COUNT 6.3 10^3/uL (4.3-11.0)
== END | disposition home or self-care (01) ==
LOC: LAB FS 10:13
PROVIDERS: ATTEND Internal Medicine Hematology & Oncology
DX: E83.110 Hereditary hemochromatosis (principal)
CPT/HCPCS: 36415; 82728; 85025

== ENCOUNTER 2021-11-27 21:08 | Emergency (ER) | payer MEDICARE, OTHER ==
[~2021-11-27] VITALS: Ht 175.2 cm; Wt 65.7 kg
[2021-11-27] MEDS ORDERED: ACETAMINOPHEN 500 MG TAB (TYLENOL) PO STA (21:20)
[2021-11-27] MEDS ORDERED: NS IV 500 ML 500 ML IV STA (21:36)
[2021-11-27] MEDS ORDERED: RT-ALBUTEROL HFA 8.5 GM INHALER IH STA (21:36)
--- NOTE | 2021-11-27 21:46 | ED Respiratory ---
General Chief Complaint: COVID19 Suspect/Confirmed Stated Complaint: COVID+ Nursing Triage Note: Patient states that he began coughing yesterday. Patient did describe having shortness of breath after having a period of coughing. Patient took an at home Covid test that was positive approximately 30 minutes BATTERY HAND. Patient does not have any complaints at this time but wanted to get checked out due to his age and having covid. Patient does present with fever that he is unaware of. Source: patient History of Present Illness Date Seen by Provider: Nov 27, 2021 Time Seen by Provider: 21:12 Initial Comments 86-year-old male presenting with complaints of coughing and feeling rundown since last night. He finally took a COVID test this evening and it was positive. He states that he came to be evaluated so he could be "better safe than sorry". He states that he has had some coughing episodes where he feels really short of breath. He denies any nausea, vomiting, fever, chills, headache, diarrhea, abdominal pain, pain with urination. He does have a fever on arrival to the emergency department. He states he is feeling a little better on arrival to the ED. He was feeling worse at home earlier. Severity: moderate Prior Episodes/Possible Cause: no prior episodes Modifying Factors: Worse With Coughing Associated Symptoms: No chest pain/soreness; cough; No dizziness, No earache, No facial pain; fever/chills (Fever present on presentation to the ED); No headache, No lightheadedness, No muscle aches; nasal congestion, nasal drainage, shortness of breath (With cough and exertion); No sinus infection, No sore throat, No wheezing Allergies and Home Medications Allergies Coded Allergies: Penicillins (Verified Allergy, Unknown, 03/15/20) Patient Home Medication List Home Medication List Reviewed: Yes Ascorbic Acid (Vitamin C) 500 Mg Capsule, 500 MG PO DAILY, (Reported) Entered as Reported by: FRANTZ REYNOSO on 01/03/20 1039 Celecoxib (Celecoxib) 200 Mg Capsule, 200 MG PO DAILY, (Reported) Entered as Reported by: FRANTZ REYNOSO on 01/03/20 1033 Cholecalciferol (Vitamin D3) (Vitamin D3) 25 Mcg Capsule, 25 MCG PO DAILY, (Reported) Entered as Reported by: RAN OSWALD on 05/29/20 0828 Cyanocobalamin (Vitamin B-12) (B-12) 1,000 Mcg Tablet, 1,000 MCG PO DAILY, (Reported) Entered as Reported by: FRANTZ REYNOSO on 01/03/20 1039 Diltiazem HCl (Diltiazem 24Hr ER) 120 Mg Cap.er.24h, 120 MG PO DAILY, (Reported) Entered as Reported by: FRANTZ REYNOSO on 01/03/20 1033 Folic Acid (Folic Acid) 0.4 Mg Tablet, 0.4 MG PO DAILY, (Reported) Entered as Reported by: FRANTZ REYNOSO on 01/03/20 1039 Metoprolol Succinate (Toprol Xl) 25 Mg Tab.er.24h, 25 MG PO HS, (Reported) Entered as Reported by: FRANTZ REYNOSO on 01/03/20 1033 Pantoprazole Sodium (Pantoprazole Sodium) 40 Mg Tablet.dr, 40 MG PO 1700 BEFORE DINNER, (Reported) Entered as Reported by: RAN OSWALD on 05/29/20 0830 Rivaroxaban (Xarelto) 20 Mg Tablet, 20 MG PO 1800 AFTER DINNER, (Reported) Entered as Reported by: FRANTZ REYNOSO on 01/03/20 1033 Zinc Amino Acid Chelate (Zinc) 50 Mg Tablet, 50 MG PO DAILY, (Reported) Entered as Reported by: FRANTZ REYNOSO on 01/03/20 1039 Review of Systems Review of Systems Constitutional: No chills; fever (On presentation to the ED) EENTM: see HPI Respiratory: see HPI Cardiovascular: No chest pain Gastrointestinal: see HPI Genitourinary: no symptoms reported Musculoskeletal: no symptoms reported Skin: No rash Psychiatric/Neurological: Denies Headache Hematologic/Lymphatic: Denies Blood Clots; Easy Bleeding (Takes a blood thinner), Easy Bruising (Takes a blood thinner) Immunological/Allergic: no symptoms reported Past Xadyuiz-Orubac-Nnwtuo Hx Patient Social History Tobacco Use?: No Substance use?: No Alcohol Use?: No Pt feels they are or have been: No Immunizations Up To Date Tetanus Booster (TDap): Unknown COVID19 Vaccine [employer]: [employer] Seasonal Allergies Seasonal Allergies: No Past Medical History Surgery/Hospitalization HX: Atrial fibrillation, hypertension, arthritis, elevated ferritin and iron levels Surgeries: Yes (R THR x2, L THR x1, Bilat Inguinal hernia repairs) Eye Surgery, Joint Replacement, Orthopedic Respiratory: No Cardiac: Yes (Ascending Aortic Aneurysm hx) Aneurysm, Atrial Fibrillation, Hypertension Neurological: No Sexually Transmitted Disease: No HIV/AIDS: No Genitourinary: No Gastrointestinal: Yes (Esophageal stricture hx, hx colon polyp) Polyps Musculoskeletal: Yes (Hip replacements, Hx bursitis R hip, Hx tendonitis biceps and rotator cuff) Degenerate Disk Disease, Osteoporosis, Arthritis Endocrine: No HEENT: Yes (GLASSES) Loss of Vision: Denies Hearing Impairment: Denies Cancer: No Psychosocial: No Integumentary: No Blood Disorders: No Adverse Reaction/Blood Tranf: No (N/A) Family Medical History No Pertinent Family Hx Physical Exam Vital Signs - First Documented 11/27/21 21:17 Temp 39.4 Pulse 109 Resp 18 B/P (MAP) 150/51 (84) Pulse Ox 96 O2 Delivery Room Air Capillary Refill : Less Than 3 Seconds Height: '" Weight: lbs. oz. 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, alert, normal mood/affect, oriented x 3 Skin: normal color, warm/dry; No rash Focused Exam Lactate Level 11/27/21 21:43: Lactic Acid Level 1.10 Lactic Acid Level Laboratory Tests Test 11/27/21 21:43 Lactic Acid Level 1.10 MMOL/L (0.50-2.00) Progress/Results/Core Measures Suspected Sepsis SIRS Temperature: Pulse: 109 Respiratory Rate: 18 Laboratory Tests 11/27/21 21:43: White Blood Count 6.3 Blood Pressure 150 /51 Mean: 84 11/27/21 21:43: Lactic Acid Level 1.10 Laboratory Tests 11/27/21 21:43: Creatinine 0.97, INR Comment 3.0H, Platelet Count 135, Total Bilirubin 0.5 Results/Orders Lab Results Laboratory Tests Test 11/27/21 21:43 Range/Units White Blood Count 6.3 4.3-11.0 10^3/uL Red Blood Count 2.72 L 4.30-5.52 10^6/uL Hemoglobin 10.2 L 13.3-17.7 g/dL Hematocrit 30 L 40-54 % Mean Corpuscular Volume 109 H 80-99 fL Mean Corpuscular Hemoglobin 38 H 25-34 pg Mean Corpuscular Hemoglobin Concent 35 32-36 g/dL Red Cell Distribution Width 12.8 10.0-14.5 % Platelet Count 135 130-400 10^3/uL Mean Platelet Volume 11.3 9.0-12.2 fL Immature Granulocyte % (Auto) 0 % Neutrophils (%) (Auto) 71 42-75 % Lymphocytes (%) (Auto) 12 12-44 % Monocytes (%) (Auto) 16 H 0-12 % Eosinophils (%) (Auto) 1 0-10 % Basophils (%) (Auto) 1 0-10 % Neutrophils # (Auto) 4.5 1.8-7.8 X 10^3 Lymphocytes # (Auto) 0.8 L 1.0-4.0 X 10^3 Monocytes # (Auto) 1.0 0.0-1.0 X 10^3 Eosinophils # (Auto) 0.0 0.0-0.3 10^3/uL Basophils # (Auto) 0.0 0.0-0.1 10^3/uL Immature Granulocyte # (Auto) 0.0 0.0-0.1 10^3/uL Prothrombin Time 32.0 H 12.2-14.7 SEC INR Comment 3.0 H 0.8-1.4 Activated Partial Thromboplast Time 52 H 24-35 SEC Sodium Level 138 135-145 MMOL/L Potassium Level 4.0 3.6-5.0 MMOL/L Chloride Level 105 98-107 MMOL/L Carbon Dioxide Level 23 21-32 MMOL/L Anion Gap 10 5-14 MMOL/L Blood Urea Nitrogen 22 H 7-18 MG/DL Creatinine 0.97 0.60-1.30 MG/DL Estimat Glomerular Filtration Rate 76 BUN/Creatinine Ratio 23 Glucose Level 119 H 70-105 MG/DL Lactic Acid Level 1.10 0.50-2.00 MMOL/L Calcium Level 8.9 8.5-10.1 MG/DL Corrected Calcium 9.2 8.5-10.1 MG/DL Total Bilirubin 0.5 0.1-1.0 MG/DL Aspartate Amino Transf (AST/SGOT) 17 5-34 U/L Alanine Aminotransferase (ALT/SGPT) 9 0-55 U/L Alkaline Phosphatase 83 40-136 U/L Troponin I < 0.30 <0.30 NG/ML C-Reactive Protein 1.82 H <0.50 MG/DL Total Protein 6.1 L 6.4-8.2 GM/DL Albumin 3.6 3.2-4.5 GM/DL My Orders Orders - SYLVESTER OH MD Acetaminophen Tablet (Tylenol Tablet) (11/27/21 21:20) Ed Iv/Invasive Line Start (11/27/21 21:36) Cbc With Automated Diff (11/27/21 21:36) Comprehensive Metabolic Panel (11/27/21 21:36) Crp Fs (11/27/21 21:36) Troponin I Fs (11/27/21 21:36) Protime With Inr (11/27/21 21:36) Partial Thromboplastin Time (11/27/21 21:36) Blood Culture (11/27/21 21:36) Lactic Acid Analyzer (11/27/21 21:36) Albuterol Inhaler (Albuterol) (11/27/21 21:36) Ns Iv 500 Ml (Sodium Chloride 0.9%) (11/27/21 21:36) Chest 1 View Ap/Pa Only (11/27/21 21:39) Vital Signs/I&O 11/27/21 11/27/21 11/27/21 11/27/21 21:17 21:33 22:17 22:37 Temp 39.4 39.3 36.9 Pulse 109 92 Resp 18 18 B/P (MAP) 150/51 (84) 115/63 Pulse Ox 96 96 O2 Delivery Room Air Room Air Capillary Refill : Less Than 3 Seconds Blood Pressure Mean: 84 Progress Note #1: Progress Note Treat the fever with 1 g Tylenol p.o. Obtain labs and evaluate his blood count as well as electrolytes and CRP with blood culture and lactic acid. Chest x-ray to evaluate for infiltrate or acute pulmonary process. Normal saline 500 mL bolus of fluids to help with hydration. Start him on albuterol inhaler with spacer 2 puffs every 4 hours as needed for cough and wheezing. Progress Note #2: Progress Note Chest x-ray is clear without acute process. His oxygen saturation has been remaining 95 to 97% on room air. Has stable CBC without acute significant change from a few days ago. Has chemistry panel does not show acute significant abnormality. Blood work was showing no signs of acute serious illness for his complaint of COVID. Progress Note #3: Progress Note When reviewing results of the discharge with the patient she was more interested in talking about his family and his history of his career in the [employer]. Advised to quarantine and wear a mask. Uses inhaler to help with cough and shortness of breath from the inflammation due to the COVID. Push fluids and rest. Consider using Mucinex [id number] to help with cough and congestion. Follow-up through the clinic for continued concerns. Diagnostic Imaging Diagonstic Imaging: Xray Plain Films/CT/US/NM/MRI: chest Comments NAME: KENNY HAQUE [facility] REC#: [id number] PT STATUS: REG ER : 1935 PHYSICIAN: SYLVESTER OH MD ADMIT DATE: 11/27/21/ER FS Signed Date of Exam:11/27/21 CHEST 1 VIEW AP/PA ONLY CHEST 1 VIEW AP/PA ONLY Indication: Cough, Covid positive Comparison: 05/29/2020 Findings: No focal airspace disease in the visualized lungs. Please note that the posterior lower lobes are poorly evaluated by portable radiography. No pleural effusion or pneumothorax. Normal cardiomediastinal silhouette. Impression: 1. No acute cardiopulmonary process by portable radiography. Dictated by: Dictated on workstation # [id number] Dict: 11/27/212202 Trans: 11/27/212203 [facility] [id number] Interpreted by: SAMMIE AYOUB MD Electronically signed by: SAMMIE AYOUB MD 11/27/212203 Reviewed: Reviewed by Me Departure Impression Primary Impression: Positive self-administered antigen test for COVID-19 Additional Impression: Respiratory tract infection due to COVID-19 virus Disposition: HOME, SELF-CARE Condition: Stable Departure-Patient Inst. Decision time for Depature: 22:18 Referrals: KALI GALLO MD (PCP/Family) Primary Care Physician Patient Instructions: COVID-19 ED, Fever, Adult ED, How to Use a Metered Dose Inhaler ED, How to Use a Spacer Add. Discharge Instructions: Stay well-hydrated and get plenty of rest. You should quarantine for 5 days and make sure you are wearing a mask. Once your symptoms have resolved you would still want to wear a mask for a total of 10 days. But after the first 5 days and your symptoms resolving you would no longer have to quarantine. Use the inhaler with the spacer by using 2 puffs from the inhaler through the spacer every 4 hours as needed for cough and shortness of breath. Check back with the clinic for continued concerns or worsening problems. All discharge instructions reviewed with patient and/or family. Voiced understanding. SYLVESTER OH MD Nov 27, 2021 21:46
[2021-11-27 22:03] LABS: HEMATOCRIT 30 % (40-54); HEMOGLOBIN 10.2 g/dL (13.3-17.7); LYMPHOCYTES % (AUTO) 12 % (12-44); MEAN CORPUSCULAR HEMOGLOBIN 38 pg (25-34); MEAN CORPUSCULAR HGB CONC 35 g/dL (32-36); MEAN CORPUSCULAR VOLUME 109 fL (80-99); MEAN PLATELET VOLUME 11.3 fL (9.0-12.2); NEUTROPHILS % (AUTO) 71 % (42-75); PLATELET COUNT 135 10^3/uL (130-400); WHITE BLOOD COUNT 6.3 10^3/uL (4.3-11.0)
[2021-11-27 22:04] LABS: BASOPHILS % (AUTO) 1 % (0-10); EOSINOPHILS % (AUTO) 1 % (0-10); LYMPHOCYTES # (AUTO) 0.8 X 10^3 (1.0-4.0); MONOCYTES % (AUTO) 16 % (0-12); NEUTROPHILS # (AUTO) 4.5 X 10^3 (1.8-7.8)
--- NOTE | 2021-11-27 22:05 | Diagnostic Imaging Report ---
CHEST 1 VIEW AP/PA ONLY Indication: Cough, Covid positive Comparison: 05/29/2020 Findings: No focal airspace disease in the visualized lungs. Please note that the posterior lower lobes are poorly evaluated by portable radiography. No pleural effusion or pneumothorax. Normal cardiomediastinal silhouette. Impression: 1. No acute cardiopulmonary process by portable radiography. Dictated by: Dictated on workstation # [id number]
[2021-11-27 22:17] LABS: ALANINE AMINOTRANSFERASE 9 U/L (0-55); ALKALINE PHOSPHATASE 83 U/L (40-136); BILIRUBIN,TOTAL 0.5 MG/DL (0.1-1.0); BUN/CREATININE RATIO 23; CALCIUM 8.9 MG/DL (8.5-10.1); CARBON DIOXIDE 23 MMOL/L (21-32); CHLORIDE 105 MMOL/L (98-107); CREATININE SERUM 0.97 MG/DL (0.60-1.30); GFR ESTIMATED 76; GLUCOSE 119 MG/DL (70-105); SODIUM 138 MMOL/L (135-145)
[2021-11-27 22:18] LABS: ALBUMIN 3.6 GM/DL (3.2-4.5); TOTAL PROTEIN 6.1 GM/DL (6.4-8.2)
[2021-11-27 22:37] VITALS: BP 115/63
== END 2021-11-27 22:38 | disposition home or self-care (01) ==
LOC: EDUNIT# 21:08 → ER FS 21:10
DX: U07.1 COVID-19 (principal); J98.8 Other specified respiratory disorders; Z73.0 Burn-out
CPT/HCPCS: 36415; 71045; 80053; 83605; 84484; 85025; 85610; 85730; 86141; 87040

== ENCOUNTER 2021-12-09 10:01 | Outpatient (RCR) | payer MEDICARE, OTHER ==
[2021-12-09 10:19] LABS: BASOPHILS # (AUTO) 0.1 10^3/uL (0.0-0.1); BASOPHILS % (AUTO) 1 % (0-10); EOSINOPHILS # (AUTO) 0.2 10^3/uL (0.0-0.3); EOSINOPHILS % (AUTO) 4 % (0-10); HEMATOCRIT 33 % (40-54); HEMOGLOBIN 11.3 g/dL (13.3-17.7); LYMPHOCYTES % (AUTO) 30 % (12-44); MEAN CORPUSCULAR HEMOGLOBIN 37 pg (25-34); MEAN CORPUSCULAR HGB CONC 35 g/dL (32-36); MEAN CORPUSCULAR VOLUME 107 fL (80-99); MEAN PLATELET VOLUME 10.3 fL (9.0-12.2); MONOCYTES # (AUTO) 0.7 10^3/uL (0.0-1.0); MONOCYTES % (AUTO) 10 % (0-12); NEUTROPHILS # (AUTO) 3.6 10^3/uL (1.8-7.8); NEUTROPHILS % (AUTO) 56 % (42-75); PLATELET COUNT 195 10^3/uL (130-400); WHITE BLOOD COUNT 6.5 10^3/uL (4.3-11.0)
[2021-12-09 12:34] LABS: ATYPICAL LYMPHOCYTES 4 %; BAND NEUTROPHILS 3 %; BASOPHILS % (MANUAL) 1 %; EOSINOPHILS % (MANUAL) 3 %; HYPOCHROMASIA 1+; LYMPHOCYTES % (MANUAL) 23 %; MONOCYTES % (MANUAL) 9 %; NEUTROPHILS % (MANUAL) 57 %; PLATELET ESTIMATE NORMAL
== END 2021-12-25 | disposition home or self-care (01) ==
LOC: LAB FS 10:01
PROVIDERS: ATTEND Internal Medicine Hematology & Oncology
DX: E83.110 Hereditary hemochromatosis (principal)
CPT/HCPCS: 36415; 82728; 85007; 85027

== ENCOUNTER 2021-12-23 10:13 | Outpatient (RCR) | payer MEDICARE, OTHER ==
[2021-12-23 10:48] LABS: BASOPHILS # (AUTO) 0.1 10^3/uL (0.0-0.1); BASOPHILS % (AUTO) 2 % (0-10); EOSINOPHILS # (AUTO) 0.2 10^3/uL (0.0-0.3); EOSINOPHILS % (AUTO) 3 % (0-10); HEMATOCRIT 32 % (40-54); LYMPHOCYTES # (AUTO) 1.7 10^3/uL (1.0-4.0); LYMPHOCYTES % (AUTO) 32 % (12-44); MEAN CORPUSCULAR HEMOGLOBIN 37 pg (25-34); MEAN CORPUSCULAR HGB CONC 34 g/dL (32-36); MEAN CORPUSCULAR VOLUME 110 fL (80-99); MEAN PLATELET VOLUME 11.1 fL (9.0-12.2); MONOCYTES # (AUTO) 0.7 10^3/uL (0.0-1.0); MONOCYTES % (AUTO) 13 % (0-12); NEUTROPHILS # (AUTO) 2.6 10^3/uL (1.8-7.8); NEUTROPHILS % (AUTO) 50 % (42-75); PLATELET COUNT 163 10^3/uL (130-400); WHITE BLOOD COUNT 5.3 10^3/uL (4.3-11.0)
== END 2021-12-25 | disposition home or self-care (01) ==
LOC: LAB FS 10:13
PROVIDERS: ATTEND Internal Medicine Hematology & Oncology
DX: E83.110 Hereditary hemochromatosis (principal)
CPT/HCPCS: 36415; 82728; 85025

== ENCOUNTER → 2021-12-25 | Outpatient (RCR) | payer MEDICARE, OTHER ==
[2021-11-27 11:16] VITALS: BP 118/68
[2021-12-11 11:20] VITALS: BP 133/81
[2021-12-25 11:29] VITALS: BP 158/86
== END | disposition home or self-care (01) ==
LOC: SDC 11-27 10:42
PROVIDERS: ATTEND Internal Medicine Hematology & Oncology
DX: E83.110 Hereditary hemochromatosis (principal)
CPT/HCPCS: 36592

== ENCOUNTER 2022-01-20 10:32 | Outpatient (RCR) | payer MEDICARE, OTHER ==
[2022-01-06 11:10] LABS: BASOPHILS # (AUTO) 0.1 10^3/uL (0.0-0.1); BASOPHILS % (AUTO) 1 % (0-10); EOSINOPHILS # (AUTO) 0.2 10^3/uL (0.0-0.3); EOSINOPHILS % (AUTO) 3 % (0-10); HEMATOCRIT 34 % (40-54); HEMOGLOBIN 11.5 g/dL (13.3-17.7); LYMPHOCYTES # (AUTO) 1.8 10^3/uL (1.0-4.0); LYMPHOCYTES % (AUTO) 31 % (12-44); MEAN CORPUSCULAR HEMOGLOBIN 37 pg (25-34); MEAN CORPUSCULAR HGB CONC 34 g/dL (32-36); MEAN CORPUSCULAR VOLUME 108 fL (80-99); MEAN PLATELET VOLUME 11.2 fL (9.0-12.2); MONOCYTES # (AUTO) 0.7 10^3/uL (0.0-1.0); MONOCYTES % (AUTO) 12 % (0-12); NEUTROPHILS # (AUTO) 3.1 10^3/uL (1.8-7.8); NEUTROPHILS % (AUTO) 54 % (42-75); PLATELET COUNT 153 10^3/uL (130-400); WHITE BLOOD COUNT 5.7 10^3/uL (4.3-11.0)
[2022-01-20 11:04] LABS: BASOPHILS # (AUTO) 0.1 10^3/uL (0.0-0.1); BASOPHILS % (AUTO) 1 % (0-10); EOSINOPHILS # (AUTO) 0.2 10^3/uL (0.0-0.3); EOSINOPHILS % (AUTO) 3 % (0-10); HEMATOCRIT 34 % (40-54); HEMOGLOBIN 11.7 g/dL (13.3-17.7); LYMPHOCYTES # (AUTO) 1.7 10^3/uL (1.0-4.0); LYMPHOCYTES % (AUTO) 30 % (12-44); MEAN CORPUSCULAR HEMOGLOBIN 38 pg (25-34); MEAN CORPUSCULAR HGB CONC 35 g/dL (32-36); MEAN CORPUSCULAR VOLUME 108 fL (80-99); MEAN PLATELET VOLUME 10.7 fL (9.0-12.2); MONOCYTES # (AUTO) 0.7 10^3/uL (0.0-1.0); MONOCYTES % (AUTO) 13 % (0-12); NEUTROPHILS # (AUTO) 3.1 10^3/uL (1.8-7.8); NEUTROPHILS % (AUTO) 53 % (42-75); PLATELET COUNT 167 10^3/uL (130-400); WHITE BLOOD COUNT 5.8 10^3/uL (4.3-11.0)
[2022-01-20 11:57] LABS: NEUTROPHILS % (MANUAL) 56 %
[2022-01-20 11:58] LABS: ATYPICAL LYMPHOCYTES 7 %; BAND NEUTROPHILS 2 %; BASOPHILS % (MANUAL) 1 %; EOSINOPHILS % (MANUAL) 0 %; LYMPHOCYTES % (MANUAL) 23 %; MONOCYTES % (MANUAL) 11 %
[2022-01-20 11:59] LABS: PLATELET ESTIMATE NORMAL
== END 2022-01-25 | disposition home or self-care (01) ==
LOC: LAB FS 10:32
PROVIDERS: ATTEND Internal Medicine Hematology & Oncology
DX: E83.110 Hereditary hemochromatosis (principal)
CPT/HCPCS: 36415; 82728; 85007; 85025; 85027

== ENCOUNTER 2022-01-22 11:12 | Outpatient (RCR) | payer MEDICARE, OTHER ==
[2022-01-08 11:20] VITALS: BP 137/99
[2022-01-22 11:15] VITALS: BP 135/84
== END 2022-01-25 | disposition home or self-care (01) ==
LOC: SDC 11:12
PROVIDERS: ATTEND Internal Medicine Hematology & Oncology
DX: E83.110 Hereditary hemochromatosis (principal)
CPT/HCPCS: 36592

== ENCOUNTER 2022-02-17 10:24 | Outpatient (RCR) | payer MEDICARE, OTHER ==
[2022-02-17 10:45] LABS: BASOPHILS # (AUTO) 0.1 10^3/uL (0.0-0.1); BASOPHILS % (AUTO) 1 % (0-10); EOSINOPHILS # (AUTO) 0.2 10^3/uL (0.0-0.3); EOSINOPHILS % (AUTO) 3 % (0-10); HEMATOCRIT 33 % (40-54); HEMOGLOBIN 11.1 g/dL (13.3-17.7); LYMPHOCYTES # (AUTO) 1.4 10^3/uL (1.0-4.0); LYMPHOCYTES % (AUTO) 24 % (12-44); MEAN CORPUSCULAR HEMOGLOBIN 37 pg (25-34); MEAN CORPUSCULAR HGB CONC 34 g/dL (32-36); MEAN CORPUSCULAR VOLUME 110 fL (80-99); MEAN PLATELET VOLUME 10.4 fL (9.0-12.2); MONOCYTES # (AUTO) 0.8 10^3/uL (0.0-1.0); MONOCYTES % (AUTO) 13 % (0-12); NEUTROPHILS # (AUTO) 3.4 10^3/uL (1.8-7.8); NEUTROPHILS % (AUTO) 59 % (42-75); PLATELET COUNT 164 10^3/uL (130-400); WHITE BLOOD COUNT 5.8 10^3/uL (4.3-11.0)
== END 2022-02-25 | disposition home or self-care (01) ==
LOC: LAB FS 10:24
PROVIDERS: ATTEND Internal Medicine Hematology & Oncology
DX: E83.110 Hereditary hemochromatosis (principal)
CPT/HCPCS: 36415; 82728; 85025

== ENCOUNTER 2022-02-19 11:06 | Outpatient (RCR) | payer MEDICARE, OTHER ==
[2022-02-05 11:35] VITALS: BP 123/91
[~2022-02-19] VITALS: Ht 175.2 cm; Wt 66.0 kg
[2022-02-19 11:40] VITALS: BP 131/80
== END 2022-02-25 | disposition home or self-care (01) ==
LOC: SDC 11:06
PROVIDERS: ATTEND Internal Medicine Hematology & Oncology
DX: E83.110 Hereditary hemochromatosis (principal)
CPT/HCPCS: 36592

== ENCOUNTER 2022-03-03 10:28 | Outpatient (RCR) | payer MEDICARE, OTHER ==
[2022-03-03 10:48] LABS: BASOPHILS # (AUTO) 0.1 10^3/uL (0.0-0.1); BASOPHILS % (AUTO) 1 % (0-10); EOSINOPHILS # (AUTO) 0.2 10^3/uL (0.0-0.3); EOSINOPHILS % (AUTO) 4 % (0-10); HEMATOCRIT 35 % (40-54); HEMOGLOBIN 11.7 g/dL (13.3-17.7); LYMPHOCYTES # (AUTO) 1.7 10^3/uL (1.0-4.0); LYMPHOCYTES % (AUTO) 28 % (12-44); MEAN CORPUSCULAR HEMOGLOBIN 37 pg (25-34); MEAN CORPUSCULAR HGB CONC 34 g/dL (32-36); MEAN CORPUSCULAR VOLUME 110 fL (80-99); MEAN PLATELET VOLUME 10.5 fL (9.0-12.2); MONOCYTES # (AUTO) 0.6 10^3/uL (0.0-1.0); MONOCYTES % (AUTO) 11 % (0-12); NEUTROPHILS # (AUTO) 3.3 10^3/uL (1.8-7.8); NEUTROPHILS % (AUTO) 56 % (42-75); PLATELET COUNT 178 10^3/uL (130-400); WHITE BLOOD COUNT 5.9 10^3/uL (4.3-11.0)
== END 2022-03-27 | disposition home or self-care (01) ==
LOC: LAB FS 10:28
PROVIDERS: ATTEND Internal Medicine Hematology & Oncology
DX: E83.110 Hereditary hemochromatosis (principal)
CPT/HCPCS: 36415; 82728; 85025

== ENCOUNTER 2022-03-05 11:10 | Outpatient (RCR) | payer MEDICARE, OTHER ==
[~2022-03-05] VITALS: Wt 66.0 kg
[2022-03-05 12:10] VITALS: BP 127/80
== END 2022-03-27 | disposition home or self-care (01) ==
LOC: SDC 11:10
PROVIDERS: ATTEND Internal Medicine Hematology & Oncology
DX: E83.110 Hereditary hemochromatosis (principal)
CPT/HCPCS: 36592

== ENCOUNTER 2022-03-17 10:34 | Outpatient (RCR) | payer MEDICARE, OTHER ==
[2022-03-17 11:20] LABS: BASOPHILS # (AUTO) 0.1 10^3/uL (0.0-0.1); BASOPHILS % (AUTO) 1 % (0-10); EOSINOPHILS # (AUTO) 0.2 10^3/uL (0.0-0.3); EOSINOPHILS % (AUTO) 4 % (0-10); HEMATOCRIT 32 % (40-54); HEMOGLOBIN 10.7 g/dL (13.3-17.7); LYMPHOCYTES # (AUTO) 1.7 10^3/uL (1.0-4.0); LYMPHOCYTES % (AUTO) 29 % (12-44); MEAN CORPUSCULAR HEMOGLOBIN 37 pg (25-34); MEAN CORPUSCULAR HGB CONC 34 g/dL (32-36); MEAN CORPUSCULAR VOLUME 110 fL (80-99); MEAN PLATELET VOLUME 11.1 fL (9.0-12.2); MONOCYTES # (AUTO) 0.7 10^3/uL (0.0-1.0); MONOCYTES % (AUTO) 12 % (0-12); NEUTROPHILS # (AUTO) 3.2 10^3/uL (1.8-7.8); NEUTROPHILS % (AUTO) 54 % (42-75); PLATELET COUNT 164 10^3/uL (130-400); WHITE BLOOD COUNT 5.9 10^3/uL (4.3-11.0)
== END 2022-03-27 | disposition home or self-care (01) ==
LOC: LAB FS 10:34
PROVIDERS: ATTEND Internal Medicine Hematology & Oncology
DX: E83.110 Hereditary hemochromatosis (principal)
CPT/HCPCS: 36415; 82728; 85025

== ENCOUNTER 2022-04-14 10:24 | Outpatient (RCR) | payer MEDICARE, OTHER ==
[2022-03-31 10:43] LABS: BASOPHILS # (AUTO) 0.1 10^3/uL (0.0-0.1); BASOPHILS % (AUTO) 1 % (0-10); EOSINOPHILS # (AUTO) 0.2 10^3/uL (0.0-0.3); EOSINOPHILS % (AUTO) 3 % (0-10); HEMATOCRIT 36 % (40-54); HEMOGLOBIN 12.3 g/dL (13.3-17.7); LYMPHOCYTES # (AUTO) 1.8 10^3/uL (1.0-4.0); LYMPHOCYTES % (AUTO) 30 % (12-44); MEAN CORPUSCULAR HEMOGLOBIN 37 pg (25-34); MEAN CORPUSCULAR HGB CONC 34 g/dL (32-36); MEAN CORPUSCULAR VOLUME 108 fL (80-99); MEAN PLATELET VOLUME 10.6 fL (9.0-12.2); MONOCYTES # (AUTO) 0.7 10^3/uL (0.0-1.0); MONOCYTES % (AUTO) 11 % (0-12); NEUTROPHILS # (AUTO) 3.3 10^3/uL (1.8-7.8); NEUTROPHILS % (AUTO) 56 % (42-75); PLATELET COUNT 152 10^3/uL (130-400)
[2022-04-14 10:41] LABS: BASOPHILS # (AUTO) 0.1 10^3/uL (0.0-0.1); BASOPHILS % (AUTO) 1 % (0-10); EOSINOPHILS # (AUTO) 0.2 10^3/uL (0.0-0.3); EOSINOPHILS % (AUTO) 3 % (0-10); HEMATOCRIT 34 % (40-54); LYMPHOCYTES # (AUTO) 1.8 10^3/uL (1.0-4.0); LYMPHOCYTES % (AUTO) 26 % (12-44); MEAN CORPUSCULAR HEMOGLOBIN 37 pg (25-34); MEAN CORPUSCULAR HGB CONC 35 g/dL (32-36); MEAN CORPUSCULAR VOLUME 106 fL (80-99); MEAN PLATELET VOLUME 10.8 fL (9.0-12.2); MONOCYTES # (AUTO) 0.7 10^3/uL (0.0-1.0); MONOCYTES % (AUTO) 11 % (0-12); NEUTROPHILS % (AUTO) 58 % (42-75); PLATELET COUNT 174 10^3/uL (130-400); WHITE BLOOD COUNT 6.8 10^3/uL (4.3-11.0)
== END 2022-04-27 | disposition home or self-care (01) ==
LOC: LAB FS 10:24
PROVIDERS: ATTEND Internal Medicine Hematology & Oncology
DX: E83.110 Hereditary hemochromatosis (principal)
CPT/HCPCS: 36415; 82728; 85025

== ENCOUNTER 2022-04-16 10:58 | Outpatient (RCR) | payer MEDICARE, OTHER ==
[2022-04-02 11:54] VITALS: BP 125/76
[~2022-04-16] VITALS: Wt 66.0 kg
[2022-04-16 11:33] VITALS: BP 151/81
== END 2022-04-27 | disposition home or self-care (01) ==
LOC: SDC 10:58
PROVIDERS: ATTEND Internal Medicine Hematology & Oncology
DX: E83.110 Hereditary hemochromatosis (principal)
CPT/HCPCS: 36592

== ENCOUNTER 2022-04-30 10:52 | Outpatient (RCR) | payer MEDICARE, OTHER ==
[~2022-04-30] VITALS: Wt 66.0 kg
[2022-04-30 11:40] VITALS: BP 139/76
== END 2022-05-27 | disposition home or self-care (01) ==
LOC: SDC 10:52
PROVIDERS: ATTEND Internal Medicine Hematology & Oncology
DX: E83.110 Hereditary hemochromatosis (principal)
CPT/HCPCS: 36592

== ENCOUNTER 2022-05-26 10:38 | Outpatient (RCR) | payer MEDICARE, OTHER ==
[2022-04-28 10:59] LABS: BASOPHILS # (AUTO) 0.1 10^3/uL (0.0-0.1); BASOPHILS % (AUTO) 1 % (0-10); EOSINOPHILS # (AUTO) 0.2 10^3/uL (0.0-0.3); EOSINOPHILS % (AUTO) 3 % (0-10); HEMATOCRIT 33 % (40-54); HEMOGLOBIN 11.3 g/dL (13.3-17.7); LYMPHOCYTES # (AUTO) 1.7 10^3/uL (1.0-4.0); LYMPHOCYTES % (AUTO) 27 % (12-44); MEAN CORPUSCULAR HEMOGLOBIN 37 pg (25-34); MEAN CORPUSCULAR HGB CONC 34 g/dL (32-36); MEAN CORPUSCULAR VOLUME 108 fL (80-99); MEAN PLATELET VOLUME 10.3 fL (9.0-12.2); MONOCYTES # (AUTO) 0.7 10^3/uL (0.0-1.0); MONOCYTES % (AUTO) 11 % (0-12); NEUTROPHILS # (AUTO) 3.6 10^3/uL (1.8-7.8); NEUTROPHILS % (AUTO) 57 % (42-75); PLATELET COUNT 164 10^3/uL (130-400); WHITE BLOOD COUNT 6.2 10^3/uL (4.3-11.0)
[2022-05-12 11:21] LABS: BASOPHILS # (AUTO) 0.1 10^3/uL (0.0-0.1); BASOPHILS % (AUTO) 1 % (0-10); EOSINOPHILS # (AUTO) 0.2 10^3/uL (0.0-0.3); EOSINOPHILS % (AUTO) 3 % (0-10); HEMATOCRIT 32 % (40-54); HEMOGLOBIN 10.9 g/dL (13.3-17.7); LYMPHOCYTES # (AUTO) 1.7 10^3/uL (1.0-4.0); LYMPHOCYTES % (AUTO) 29 % (12-44); MEAN CORPUSCULAR HEMOGLOBIN 37 pg (25-34); MEAN CORPUSCULAR HGB CONC 35 g/dL (32-36); MEAN CORPUSCULAR VOLUME 106 fL (80-99); MEAN PLATELET VOLUME 10.6 fL (9.0-12.2); MONOCYTES # (AUTO) 0.7 10^3/uL (0.0-1.0); MONOCYTES % (AUTO) 12 % (0-12); NEUTROPHILS # (AUTO) 3.2 10^3/uL (1.8-7.8); NEUTROPHILS % (AUTO) 55 % (42-75); PLATELET COUNT 185 10^3/uL (130-400); WHITE BLOOD COUNT 5.9 10^3/uL (4.3-11.0)
[2022-05-26 11:05] LABS: BASOPHILS # (AUTO) 0.1 10^3/uL (0.0-0.1); BASOPHILS % (AUTO) 1 % (0-10); EOSINOPHILS # (AUTO) 0.2 10^3/uL (0.0-0.3); EOSINOPHILS % (AUTO) 3 % (0-10); HEMATOCRIT 36 % (40-54); HEMOGLOBIN 12.3 g/dL (13.3-17.7); LYMPHOCYTES # (AUTO) 1.6 10^3/uL (1.0-4.0); LYMPHOCYTES % (AUTO) 22 % (12-44); MEAN CORPUSCULAR HEMOGLOBIN 37 pg (25-34); MEAN CORPUSCULAR HGB CONC 35 g/dL (32-36); MEAN CORPUSCULAR VOLUME 106 fL (80-99); MEAN PLATELET VOLUME 10.9 fL (9.0-12.2); MONOCYTES # (AUTO) 0.8 10^3/uL (0.0-1.0); MONOCYTES % (AUTO) 11 % (0-12); NEUTROPHILS # (AUTO) 4.4 10^3/uL (1.8-7.8); NEUTROPHILS % (AUTO) 63 % (42-75); PLATELET COUNT 159 10^3/uL (130-400)
== END 2022-05-27 | disposition home or self-care (01) ==
LOC: LAB FS 10:38
PROVIDERS: ATTEND Internal Medicine Hematology & Oncology
DX: E83.110 Hereditary hemochromatosis (principal)
CPT/HCPCS: 36415; 82728; 85025

== ENCOUNTER 2022-06-01 08:40 | Emergency (ER) | payer MEDICARE, OTHER ==
--- NOTE | 2022-06-01 09:01 | ED Upper Extremity ---
General Stated Complaint: UPPER BACK/RIGHT SHOULDER History of Present Illness Date Seen by Provider: Jun 01, 2022 Time Seen by Provider: 08:56 Initial Comments 86-year-old male with PMH of arthritis/hip replacement x3, is here with complaints of right shoulder pain which has been ongoing for the past few weeks. Patient states that it hurts more when he extends his shoulder/arm forward. Denies injury, falls, trauma, sensory loss. Allergies and Home Medications Allergies Coded Allergies: Penicillins (Verified Allergy, Unknown, 03/15/20) Patient Home Medication List Home Medication List Reviewed: Yes Ascorbic Acid (Vitamin C) 500 Mg Capsule, 500 MG PO DAILY, (Reported) Entered as Reported by: FRANTZ REYNOSO on 01/03/20 1039 Celecoxib (Celecoxib) 200 Mg Capsule, 200 MG PO DAILY, (Reported) Entered as Reported by: FRANTZ REYNOSO on 01/03/20 1033 Cholecalciferol (Vitamin D3) (Vitamin D3) 25 Mcg Capsule, 25 MCG PO DAILY, (Reported) Entered as Reported by: RAN OSWALD on 05/29/20 0828 Cyanocobalamin (Vitamin B-12) (B-12) 1,000 Mcg Tablet, 1,000 MCG PO DAILY, (Reported) Entered as Reported by: FRANTZ REYNOSO on 01/03/20 1039 Diltiazem HCl (Diltiazem 24Hr ER) 120 Mg Cap.er.24h, 120 MG PO DAILY, (Reported) Entered as Reported by: FRANTZ REYNOSO on 01/03/20 1033 Folic Acid (Folic Acid) 0.4 Mg Tablet, 0.4 MG PO DAILY, (Reported) Entered as Reported by: FRANTZ REYNOSO on 01/03/20 1039 Metoprolol Succinate (Toprol Xl) 25 Mg Tab.er.24h, 25 MG PO HS, (Reported) Entered as Reported by: FRANTZ REYNOSO on 01/03/20 1033 Pantoprazole Sodium (Pantoprazole Sodium) 40 Mg Tablet.dr, 40 MG PO 1700 BEFORE DINNER, (Reported) Entered as Reported by: RAN OSWALD on 05/29/20 0830 Rivaroxaban (Xarelto) 20 Mg Tablet, 20 MG PO 1800 AFTER DINNER, (Reported) Entered as Reported by: FRANTZ REYNOSO on 01/03/20 1033 Zinc Amino Acid Chelate (Zinc) 50 Mg Tablet, 50 MG PO DAILY, (Reported) Entered as Reported by: FRANTZ Tang EDGARDO on 01/03/20 1039 Review of Systems Constitutional: no symptoms reported EENTM: no symptoms reported Respiratory: no symptoms reported Cardiovascular: no symptoms reported Gastrointestinal: no symptoms reported Genitourinary: no symptoms reported Musculoskeletal: joint pain Skin: no symptoms reported Psychiatric/Neurological: No Symptoms Reported Past Nnnasvp-Rrqlza-Kgflzp Hx Immunizations Up To Date Tetanus Booster (TDap): Unknown Seasonal Allergies Seasonal Allergies: No Past Medical History Surgery/Hospitalization HX: Atrial fibrillation, hypertension, arthritis, elevated ferritin and iron levels Surgeries: Yes (R THR x2, L THR x1, Bilat Inguinal hernia repairs) Eye Surgery, Joint Replacement, Orthopedic Respiratory: No Cardiac: Yes (Ascending Aortic Aneurysm hx) Aneurysm, Atrial Fibrillation, Hypertension Neurological: No Sexually Transmitted Disease: No HIV/AIDS: No Genitourinary: No Gastrointestinal: Yes (Esophageal stricture hx, hx colon polyp) Polyps Musculoskeletal: Yes (Hip replacements, Hx bursitis R hip, Hx tendonitis biceps and rotator cuff) Degenerate Disk Disease, Osteoporosis, Arthritis Endocrine: No HEENT: Yes (GLASSES) Loss of Vision: Denies Hearing Impairment: Denies Cancer: No Psychosocial: No Integumentary: No Blood Disorders: No Adverse Reaction/Blood Tranf: No (N/A) Family Medical History No Pertinent Family Hx Physical Exam Vital Signs Vital Signs - First Documented 06/01/22 08:58 Temp 36.0 Pulse 80 Resp 16 B/P (MAP) 149/103 (118) O2 Delivery Room Air Capillary Refill : Height, Weight, BMI Height: '" Weight: lbs. oz. kg; 21.00 BMI Method: General Appearance: WD/WN, no apparent distress HEENT: PERRL/EOMI Neck: non-tender, full range of motion, supple, normal inspection Back: normal inspection, no vertebral tenderness Shoulder: normal inspection, no evidence of injury, normal ROM, pain Elbow/Forearm: normal inspection, non-tender, no evidence of injury, normal ROM, Right Wrist: Yes normal inspection, Yes non-tender, Yes no evidence of injury, Yes normal ROM Hand: normal ROM Neurologic/Tendon: normal sensation, normal motor functions Neurologic/Psychiatric: no motor/sensory deficits, alert, normal mood/affect, oriented x 3 Skin: normal color Progress/Results/Core Measures Results/Orders My Orders Orders - ADAM BELL MD Shoulder 3 View Right (06/01/22 09:12) Vital Signs/I&O 06/01/22 08:58 Temp 36.0 Pulse 80 Resp 16 B/P (MAP) 149/103 (118) O2 Delivery Room Air Progress Progress Note : Progress Note RIGHT SHOULDER PAIN: ARTHRITIS/ BONE SPURS: - XR RIGHT SHOULDER: no acute findings - Advised Tylenol every 4 hours as needed and over the counter lidoderm patch, and heat application - Follow up with PCP in 7 days. -The patient was seen in the ED, and treated appropriately to presentation at a specific point in time. Patient is informed that there is a possibility that disease and illness can evolve and change in acuity rapidly or slowly after patient is discharged from the ER. Precautionary advice given to the patient for immediate return to ER if symptoms worsen or do not resolve, and to seek emergency care sooner rather than later. Pt also advised on the importance of PCP follow up and compliance with management and follow up plan with PCP and/or specialist, as this is part of the management plan. Pt verbally expressed understanding. Diagnostic Imaging Diagonstic Imaging: Xray Plain Films/CT/US/NM/MRI: other Comments [facility] [place] NAME: KENNY HAQUE [facility] REC#: [id number] PT STATUS: REG ER : 1935 PHYSICIAN: ADAM BELL MD ADMIT DATE: 06/01/22/ER FS Draft Date of Exam:06/01/22 SHOULDER 3 VIEW RIGHT CLINICAL INDICATION: Patient with right shoulder pain. No injury. EXAM: X-ray of the right shoulder, 3 views. COMPARISON: None. FINDINGS: There is no acute fracture or dislocation. There are moderately hypertrophic spurs involving the right acromioclavicular region. The glenohumeral joint is intact. There are degenerative spurs involving the proximal humeral head/neck junction region. IMPRESSION: There is degenerative disease in the right shoulder with no acute fracture or dislocation. Dictated on workstation # [id number] Dict: 06/01/22 1017 Trans: 06/01/22 1021 [id number] Interpreted by: ARCHANA REYES MD Electronically signed by: Departure Impression Primary Impression: Arthritis of right shoulder region Additional Impression: Bone spur of right acromioclavicular joint Disposition: HOME, SELF-CARE Condition: Stable Departure-Patient Inst. Referrals: SELF,KALI JOSE (PCP/Family) Primary Care Physician Patient Instructions: Making Everyday Tasks Easier With Arthritis, Physical Activity for People With Arthritis, Shoulder Pain (DC) Add. Discharge Instructions: - Advised Tylenol every 4 hours as needed and over the counter lidoderm patch, and heat application - Follow up with PCP in 7 days. ADAM BELL MD Jun 01, 2022 09:01
--- NOTE | 2022-06-01 10:22 | Diagnostic Imaging Report ---
CLINICAL INDICATION: Patient with right shoulder pain. No injury. EXAM: X-ray of the right shoulder, 3 views. COMPARISON: None. FINDINGS: There is no acute fracture or dislocation. There are moderately hypertrophic spurs involving the right acromioclavicular region. The glenohumeral joint is intact. There are degenerative spurs involving the proximal humeral head/neck junction region. IMPRESSION: There is degenerative disease in the right shoulder with no acute fracture or dislocation. Dictated by: Dictated on workstation # [id number]
[2022-06-01 10:45] VITALS: BP 142/85
== END 2022-06-01 10:45 | disposition home or self-care (01) ==
LOC: EDUNIT# 08:40 → ER FS 08:44
DX: M19.011 Primary osteoarthritis, right shoulder (principal); M75.81 Other shoulder lesions, right shoulder
CPT/HCPCS: 73030

== ENCOUNTER 2022-08-11 11:43 | Outpatient (RCR) | payer MEDICARE, OTHER ==
[2022-08-11 12:02] LABS: BASOPHILS # (AUTO) 0.1 10^3/uL (0.0-0.1); BASOPHILS % (AUTO) 1 % (0-10); EOSINOPHILS # (AUTO) 0.2 10^3/uL (0.0-0.3); EOSINOPHILS % (AUTO) 3 % (0-10); HEMATOCRIT 38 % (40-54); HEMOGLOBIN 13.2 g/dL (13.3-17.7); LYMPHOCYTES # (AUTO) 2.3 10^3/uL (1.0-4.0); LYMPHOCYTES % (AUTO) 30 % (12-44); MEAN CORPUSCULAR HEMOGLOBIN 36 pg (25-34); MEAN CORPUSCULAR HGB CONC 35 g/dL (32-36); MEAN CORPUSCULAR VOLUME 102 fL (80-99); MONOCYTES # (AUTO) 0.6 10^3/uL (0.0-1.0); MONOCYTES % (AUTO) 8 % (0-12); NEUTROPHILS # (AUTO) 4.4 10^3/uL (1.8-7.8); NEUTROPHILS % (AUTO) 58 % (42-75); PLATELET COUNT 170 10^3/uL (130-400); WHITE BLOOD COUNT 7.6 10^3/uL (4.3-11.0)
== END 2022-08-25 | disposition home or self-care (01) ==
LOC: LAB FS 11:43
PROVIDERS: ATTEND Internal Medicine Hematology & Oncology
DX: E83.110 Hereditary hemochromatosis (principal)
CPT/HCPCS: 36415; 82728; 85025

== ENCOUNTER → 2022-08-11 | Outpatient (CLI) | payer MEDICARE, OTHER ==
[2022-08-11 12:26] LABS: ALBUMIN 3.9 GM/DL (3.2-4.5); BILIRUBIN,TOTAL 0.9 MG/DL (0.1-1.0); CALCIUM 9.5 MG/DL (8.5-10.1); CREATININE SERUM 0.97 MG/DL (0.60-1.30); POTASSIUM 3.7 MMOL/L (3.6-5.0); TOTAL PROTEIN 6.6 GM/DL (6.4-8.2)
== END ==
LOC: CARDFS 10:06
PROVIDERS: ATTEND Physician Assistant
DX: I11.9 Hypertensive heart disease without heart failure (principal); I34.0 Nonrheumatic mitral (valve) insufficiency; I07.1 Rheumatic tricuspid insufficiency; I35.1 Nonrheumatic aortic (valve) insufficiency; E78.2 Mixed hyperlipidemia
CPT/HCPCS: 36415; 80053; 80061; C8929; 93306

== ENCOUNTER → 2022-10-06 | Outpatient (CLI) | payer MEDICARE, OTHER ==
[2022-10-06 11:00] LABS: BASOPHILS # (AUTO) 0.1 10^3/uL (0.0-0.1); BASOPHILS % (AUTO) 1 % (0-10); EOSINOPHILS # (AUTO) 0.2 10^3/uL (0.0-0.3); EOSINOPHILS % (AUTO) 4 % (0-10); HEMATOCRIT 36 % (40-54); HEMOGLOBIN 12.3 g/dL (13.3-17.7); LYMPHOCYTES # (AUTO) 1.7 10^3/uL (1.0-4.0); LYMPHOCYTES % (AUTO) 30 % (12-44); MEAN CORPUSCULAR HEMOGLOBIN 37 pg (25-34); MEAN CORPUSCULAR HGB CONC 34 g/dL (32-36); MEAN CORPUSCULAR VOLUME 107 fL (80-99); MEAN PLATELET VOLUME 11.1 fL (9.0-12.2); MONOCYTES # (AUTO) 0.7 10^3/uL (0.0-1.0); MONOCYTES % (AUTO) 11 % (0-12); NEUTROPHILS # (AUTO) 3.2 10^3/uL (1.8-7.8); NEUTROPHILS % (AUTO) 54 % (42-75); PLATELET COUNT 161 10^3/uL (130-400); WHITE BLOOD COUNT 5.8 10^3/uL (4.3-11.0)
== END ==
LOC: LAB FS 10:07
PROVIDERS: ATTEND Internal Medicine Hematology & Oncology
DX: E83.110 Hereditary hemochromatosis (principal)
CPT/HCPCS: 36415; 82728; 83540; 83550; 85025

== ENCOUNTER → 2022-12-01 | Outpatient (CLI) | payer MEDICARE, OTHER ==
[2022-12-01 10:54] LABS: BASOPHILS % (AUTO) 1 % (0-10); EOSINOPHILS % (AUTO) 3 % (0-10); HEMATOCRIT 35 % (40-54); HEMOGLOBIN 11.6 g/dL (13.3-17.7); LYMPHOCYTES % (AUTO) 27 % (12-44); MEAN CORPUSCULAR HEMOGLOBIN 36 pg (25-34); MEAN CORPUSCULAR HGB CONC 34 g/dL (32-36); MEAN CORPUSCULAR VOLUME 108 fL (80-99); MEAN PLATELET VOLUME 11.1 fL (9.0-12.2); MONOCYTES % (AUTO) 11 % (0-12); NEUTROPHILS % (AUTO) 57 % (42-75); PLATELET COUNT 156 10^3/uL (130-400); WHITE BLOOD COUNT 6.3 10^3/uL (4.3-11.0)
[2022-12-01 10:55] LABS: BASOPHILS # (AUTO) 0.1 10^3/uL (0.0-0.1); EOSINOPHILS # (AUTO) 0.2 10^3/uL (0.0-0.3); LYMPHOCYTES # (AUTO) 1.7 X 10^3 (1.0-4.0); MONOCYTES # (AUTO) 0.7 X 10^3 (0.0-1.0); NEUTROPHILS # (AUTO) 3.6 X 10^3 (1.8-7.8)
== END ==
LOC: LAB FS 10:19
PROVIDERS: ATTEND Internal Medicine Hematology & Oncology
DX: E83.110 Hereditary hemochromatosis (principal)
CPT/HCPCS: 36415; 82728; 83540; 83550; 85025

== ENCOUNTER → 2022-12-04 | Outpatient (CLI) | payer MEDICARE, OTHER ==
[2022-12-04 11:25] VITALS: BP 145/90
== END ==
LOC: SDC 10:51
PROVIDERS: ATTEND Internal Medicine Hematology & Oncology
DX: E83.110 Hereditary hemochromatosis (principal)
CPT/HCPCS: 36592

== ENCOUNTER → 2023-05-11 | Outpatient (CLI) | payer MEDICARE, OTHER ==
[~2023-05-11] MED LIST changes: -CELE-63 PO; +CELE-91 PO
[2023-05-11 10:48] LABS: BASOPHILS # (AUTO) 0.1 10^3/uL (0.0-0.1); BASOPHILS % (AUTO) 1 % (0-10); EOSINOPHILS # (AUTO) 0.1 10^3/uL (0.0-0.3); EOSINOPHILS % (AUTO) 2 % (0-10); HEMATOCRIT 32 % (40-54); HEMOGLOBIN 10.7 g/dL (13.3-17.7); LYMPHOCYTES # (AUTO) 1.5 10^3/uL (1.0-4.0); LYMPHOCYTES % (AUTO) 26 % (12-44); MEAN CORPUSCULAR HEMOGLOBIN 36 pg (25-34); MEAN CORPUSCULAR HGB CONC 33 g/dL (32-36); MEAN CORPUSCULAR VOLUME 109 fL (80-99); MONOCYTES # (AUTO) 0.7 10^3/uL (0.0-1.0); MONOCYTES % (AUTO) 12 % (0-12); NEUTROPHILS # (AUTO) 3.2 10^3/uL (1.8-7.8); NEUTROPHILS % (AUTO) 58 % (42-75); PLATELET COUNT 150 10^3/uL (130-400); WHITE BLOOD COUNT 5.6 10^3/uL (4.3-11.0)
== END ==
LOC: LAB FS 09:49
PROVIDERS: ATTEND Internal Medicine Hematology & Oncology
DX: E83.110 Hereditary hemochromatosis (principal)
CPT/HCPCS: 36415; 82728; 83540; 83550; 85025